=== PATIENT | female | born 1930 | race Caucasian/White ===

== ENCOUNTER 2016-12-25 11:02 | Emergency (ER) | payer OTHER ==
--- NOTE | 2016-12-25 11:13 | PDOC ---
History of Present Illness - General History Source: Patient, Old Records Exam Limitations: No Limitations - History of Present Illness Initial Comments: 12/25/16 11:13 The patient is an 86-year-old woman with a significant past medical history of hypertension, spinal stenosis and colon resection who presents to the emergency department via EMS status post fall. No head injury or loss of consciousness. Patient states that she was got up to get her walker. As she got up, her leg "gave up" and she fell. She denies experiencing any chest pain, lightheadedness , dizziness, visual changes, headaches, palpitations prior/post fall. She admits she did not even try to get up and activated her Life Alert. Patient currently denies any pain but wants images done to make sure her feet are okay. No numbness, tingling and weakness sensations to her extremities. No fever, chills. No cough, shortness of breath No abdominal pain, nausea, vomiting, diarrhea, Allergies: No Known Drug Allergies. Past Surgical History: Colon resection Social History: Never smoked. No ETOH and recreational drug use.. Primary Care Physician: <Iwona Duffy - Last Filed: 12/25/16 12:23> <Emma Price - Last Filed: 12/25/16 12:32> - General Chief Complaint: Injury Stated Complaint: FELL Time Seen by Provider: 12/25/16 11:13 Past History <Iwona Duffy - Last Filed: 12/25/16 12:23> - Past Medical History HTN: Yes Suicide Attempt (Hx): No - Surgical History Abdominal Surgery: Yes (colon resection) - Immunization History Immunization Up to Date: Yes - Psycho/Social/Smoking Cessation Hx Anxiety: No Suicidal Ideation: No Smoking Status: No Smoking History: Never smoked Have you smoked in the past 12 months: No Number of Cigarettes Smoked Daily: 0 Hx Alcohol Use: No Drug/Substance Use Hx: No Substance Use Type: None Hx Substance Use Treatment: No <Emma Price - Last Filed: 12/25/16 12:32> - Past Medical History Allergies/Adverse Reactions: Allergies Allergy/AdvReac Type Severity Reaction Status Date / Time No Known Allergies Allergy Verified 12/25/16 11:16 Home Medications: Ambulatory Orders Hydrochlorothiazide 25 mg PO DAILY 01/30/12 Quinapril HCl [Accupril -] 10 mg PO HS #0 tablet 02/03/12 Quinapril HCl [Accupril -] 40 mg PO DAILY #0 tablet 02/03/12 Sulfasalazine [Azulfidine] 1,000 mg PO BID #0 tablet 02/03/12 Nebivolol HCl [Bystolic] 5 mg PO DAILY 07/07/15 Furosemide 20 mg PO DAILY 12/25/16 Review of Systems - Review of Systems Able to Perform ROS?: Yes Comments:: 12/25/16 11:14 Constitutional - Pt denies Fever, Chills, weakness, HEENT: denies vision changes, sore throat Respiratory: Denies cough, sob, hemoptysis Cardiac: denies chest pain, palpitations, light headedness, leg swelling Abd/GI: denies abd pain, nausea, vomiting, blood per rectum, melena, diarrhea : denies dysuria, frequency, discharge Musculoskeletal - denies back pain, joint swelling skin - denies bruising, erythema, rash neurological: denies headache, numbness, focal weakness, tingling, ataxia, weakness hematologic: denies anemia, easy bruising, easy bleeding <Iwona Duffy - Last Filed: 12/25/16 12:23> *Physical Exam - Physical Exam Comments: 12/25/16 11:14 GENERAL: The patient is awake, alert, and fully oriented, Nontoxic - in no acute distress. HEAD: Normocephalic, atraumatic. EYES: extraocular movements intact, sclera anicteric, conjunctiva clear. ENT: Normal voice, moist mucous membranes. NECK: Normal range of motion, supple without lymphadenopathy, JVD, or masses. LUNGS: Breath sounds equal, clear to auscultation bilaterally. No wheezes, no crackles, no rales. HEART: Regular rate and rhythm, normal S1 and S2 without murmur, rub or gallop. ABDOMEN: Soft, nontender, normoactive bowel sounds. No guarding, no rebound. No masses. EXTREMITIES: Normal range of motion, no edema. No clubbing or cyanosis. No cords , erythema, or tenderness. NEUROLOGICAL: Fully Oriented, Alert, Normal Mood/Affect, Motor Strength 5/5. No facial assymetry, Normal speech SKIN: Warm, Dry, normal turgor, no rashes or lesions noted. <Iwona Duffy - Last Filed: 12/25/16 12:23> ED Treatment Course - RADIOLOGY Radiograph Interpretation: 12/25/16 12:23 EXAM: RAD/PELVIS IMPRESSION: A single view the pelvis has been submitted. Since a prior study of 02/06/2005, there is little change. Again noted are degenerative changes but no sign of a gross fracture or subluxation. The SI joints are patent. There is a nonspecific bowel pattern. If symptoms persist or there is continued decreased range of motion then further imaging with CT is suggested. EXAM: RAD/HIP-LEFT 0127 AND RAD/HIP-RIGHT IMPRESSION: Frontal view of the pelvis and neutral and frog-leg view of the right and left hip are provided. There is some mild spurring in the region of the greater trochanters. There are mild degenerative changes of the hip joints bilaterally. No acute fracture or dislocation is seen. Enthesophyte formation about the iliac crests is noted. There are degenerative changes of the visualized lower lumbar spine. An ovoid ossific focus measuring about 1.5 cm in size lateral to the left hip is seen , benign in appearance which may be due to old trauma. <Iwona Duffy - Last Filed: 12/25/16 12:23> Medical Decision Making - Medical Decision Making 12/25/16 12:15 I, Dr. Emma Price, attest that the scribes documentation that appears above has been prepared under my direction and personally reviewed by me. I confirmed that the note above accurately reflects all work, treatment, procedures, and medical decision-making performed by me. Pt with no c/o pain, xray no fracture, pt denies loc or any other complaints, says her foot gave out while walking to walker from bedroom, says she only came to hospital because ems said she should come in. 12/25/16 12:31 Pt was able to ambulate with her walker in the ED before dc home, Pt to f/u with pcp, return to ED as needed. PT agrees with this dc plan <Emma Price - Last Filed: 12/25/16 12:32> *DC/Admit/Observation/Transfer - Attestations Scribe Attestion: 12/25/16 11:14 Documentation prepared by Iwona Duffy, acting as medical billing and coding instructor for Emma Price DO. <Iwona Duffy - Last Filed: 12/25/16 12:23> - Discharge Dispostion Admit: No <Emma Price - Last Filed: 12/25/16 12:32> Diagnosis at time of Disposition: Fall - Discharge Dispostion Disposition: HOME Condition at time of disposition: Stable - Referrals Referrals: Elijah Silvestre MD [Primary Care Provider] - - Patient Instructions Printed Discharge Instructions: How to Prevent Falls Additional Instructions: Pt to return to ED as needed. PT to use walker, at all times, pt to f/u with pcp , in next 48-72hrs
[2016-12-25 11:19] VITALS: BP 166/73; PULSE 94; TEMP 98.2; BMI 26.6
== END 2016-12-25 12:47 | disposition home or self-care (01) ==
LOC: JER 11:02
DX: Z04.3 Encounter for examination and observation following other accident (principal); W18.39XA Other fall on same level, initial encounter; Y93.89 Activity, other specified; Y92.032 Bedroom in apartment as the place of occurrence of the external cause; I10 Essential (primary) hypertension; M48.00 Spinal stenosis, site unspecified
CPT/HCPCS: 72170-TC; 99282-25

== ENCOUNTER 2017-12-30 10:10 | Emergency (ER) | payer OTHER ==
[2017-12-30 10:22] VITALS: BMI 24.7
--- NOTE | 2017-12-30 10:24 | PDOC ---
Attending Attestation - HPI HPI: 12/30/17 10:56 The patient is a 87 year old female, with a significant PMH of hypertension, rheumatoid arthritis, spinal stenosis and colon resection who presents to the emergency department complaining of productive cough and post nasal drip for 10 days and shortness of breath since this morning. The patient states she was seen by her PMD Dr. Silvestre 3 days ago and diagnosed with acute bronchitis. The patient states she was started on Levaquin and had a chest x-ray and labs performed. The patient states that this morning when she woke up she felt short of breath secondary to her apartment feeling stuffy due to the humidity. The patient states she called Dr. Silvestre who advised her to com to the ED for evaluation of the shortness of breath. As per the patients cough, she states she feels much better than she did when the cough began and that her mucus was originally a yellow color but is now clearing up. The patient denies chest pain, headache and dizziness. Denies fever, chills, nausea, vomit, diarrhea and constipation. Denies dysuria, frequency, urgency and hematuria. Allergies: NKA Past surgical history: colon resection Social history: No reported PCP: Dr. Elijah Silvestre - Physicial Exam PE: 12/30/17 12:05 Vitals: Triage vital signs reviewed General Appearance: No acute distress, well nourished, well developed Head: Atraumatic Eyes: Pupils equal reactive round, extraocular movement intact Ears: TM's normal bilaterally Nose: Nares patent bilaterally; no nasal congestion Throat: Posterior oropharynx without erythema, mucous membranes moist Neck: Supple; No nuchal rigidity Chest Wall: Nontender Cardiac: Regular rate and rhythm, no murmurs, no rubs, no gallops Lungs: Clear to auscultation bilateral, good air movement bilaterally Abdomen: Soft, nondistended, normal bowel sounds, nontender to palpation Rectal: Exam deferred Extremities: Full range of motion to all extremities, no cyanosis, clubbing, or edema Skin: Warm and dry, no rashes or lesions, no rash, no petechiae Neuro: AOX3; Cranial Nerves 2-12 grossly intact, Strength intact to all extremities, Sensation intact to all extremities. Psych: Normal mood, normal affect - Medical Decision Making 12/30/17 10:56 The patient is a 87 year old female, with a significant PMH of hypertension, rheumatoid arthritis, spinal stenosis and colon resection who presents to the emergency department complaining of productive cough and post nasal drip for 10 days and shortness of breath since this morning. Plan: Labs, blood culture. Documentation prepared by Luis Haddad, acting as medical hospital sales for Vamshi Mcleod MD. <Luis Haddad - Last Filed: 12/30/17 12:05> - Resident Resident Name: John Capps - ED Attending Attestation I have performed the following: I have examined & evaluated the patient, The case was reviewed & discussed with the resident, I agree w/resident's findings & plan, Exceptions are as noted - Medical Decision Making 12/30/17 12:45 Differential diagnosis includes symptomatology consistent with her URI/ bronchitis less likely cardiac, less likely worsening pneumonia possible from feeling short of breath and hot this morning secondary to the humidity We'll check labs EKG troponin observe and reassess no focal lung findings on patient's respiratory exam Reevaluation patient well-appearing no apparent distress low-grade fever likely continuation of bronchitis findings discussed with patient's primary care provider Dr. Saldivar will follow up with Dr. Tejeda next week we'll continue outpatient Levaquin as prescribed <Vamshi Mcleod - Last Filed: 12/30/17 16:13>
--- NOTE | 2017-12-30 10:31 | PDOC ---
History of Present Illness - General Chief Complaint: Respiratory Stated Complaint: SOB Time Seen by Provider: 12/30/17 10:21 History Source: Patient Exam Limitations: No Limitations - History of Present Illness Initial Comments: 12/30/17 11:56 87F with pmh of PMH of HTN, RA, spinal stenosis and colon resection who presents to the emergency department complaining of productive cough and post nasal drip for 10 days and shortness of breath since this morning. The patient states she was seen by her PMD Dr. Silvestre 3 days ago and diagnosed with acute bronchitis, started on Levaquin and had a chest x-ray (negative) and labs ( elevated WBC)performed. The patient states that this morning when she woke up she felt short of breath secondary to her apartment feeling stuffy due to the humidity. The patient states she called Dr. Silvestre who advised her to come to the ED for evaluation of the shortness of breath. Currently has not difficulty breathing. States that her bronchitis seems to be getting better. Sputum is clearing up. . Patient has never smoked. The patient denies chest pain, headache and dizziness. Denies fever, chills, nausea, vomit, diarrhea and constipation. Denies dysuria, frequency, urgency and hematuria. Allergies: NKA Past surgical history: colon resection Social history: No reported PCP: Dr. Elijah Silvestre Past History - Past Medical History Allergies/Adverse Reactions: Allergies Allergy/AdvReac Type Severity Reaction Status Date / Time No Known Allergies Allergy Verified 12/30/17 10:21 Home Medications: Ambulatory Orders Hydrochlorothiazide 25 mg PO DAILY 01/30/12 Quinapril HCl [Accupril -] 10 mg PO HS #0 tablet 02/03/12 Quinapril HCl [Accupril -] 40 mg PO DAILY #0 tablet 02/03/12 Nebivolol HCl [Bystolic] 10 mg PO DAILY 07/07/15 Furosemide 20 mg PO DAILY 12/25/16 Amlodipine Besylate [Norvasc -] 10 mg PO DAILY 12/30/17 Sulfasalazine [Azulfidine] 500 mg PO QID 12/30/17 levoFLOXacin [Levaquin] 750 mg PO DAILY 12/30/17 COPD: No HTN: Yes - Surgical History Abdominal Surgery: Yes (colon resection) - Immunization History Immunization Up to Date: Yes - Suicide/Smoking/Psychosocial Hx Smoking Status: No Smoking History: Former smoker Have you smoked in the past 12 months: No Number of Cigarettes Smoked Daily: 0 Information on smoking cessation initiated: No Hx Alcohol Use: No Drug/Substance Use Hx: No Substance Use Type: None Hx Substance Use Treatment: No Review of Systems - Review of Systems Able to Perform ROS?: Yes Is the patient limited [place]raltarian proficient: No Constitutional: No: Symptoms Reported HEENTM: No: Symptoms Reported Respiratory: Yes: See HPI Cardiac (ROS): No: Symptoms Reported : No: Symptoms Reported Musculoskeletal: No: Symptoms Reported All Other Systems: Reviewed and Negative *Physical Exam - Vital Signs Last Vital Signs Temp Pulse Resp BP Pulse Ox 99.1 F 95 H 18 153/76 96 12/30/17 10:17 12/30/17 10:17 12/30/17 10:17 12/30/17 10:17 12/30/17 10:17 - Physical Exam General Appearance: Yes: Nourished, Appropriately Dressed. No: Apparent Distress HEENT: positive: EOMI, JOSE CARLOS, Normal ENT Inspection Respiratory/Chest: positive: Lungs Clear, Normal Breath Sounds. negative: Chest Tender, Respiratory Distress Cardiovascular: positive: Regular Rhythm, Regular Rate, S1, S2 Gastrointestinal/Abdominal: positive: Normal Bowel Sounds, Flat, Soft. negative : Tender Musculoskeletal: positive: Normal Inspection. negative: CVA Tenderness ED Treatment Course - LABORATORY CBC & Chemistry Diagram: 12/30/17 10:45 12/30/17 10:45 Medical Decision Making - Medical Decision Making 12/30/17 12:04 87F with sob this morning and productive cough x10 days. Will evalute acute URI with repeat lab, r/o diffewrent source of fever/wbc with UA and EKG/trop for cardiac event. All results negative, wbc improving. EKG: sinus rhythm with anterior infarct age undetermined. Spoke to Dr. Silvestre who agreed with plan of follow up within 2-3- days. *DC/Admit/Observation/Transfer Diagnosis at time of Disposition: Acute bronchitis - Discharge Dispostion Disposition: HOME Condition at time of disposition: Fair Admit: No - Referrals Referrals: Elda Silvestre [Primary Care Provider] - - Patient Instructions Printed Discharge Instructions: DI for Acute Bronchitis Additional Instructions: Take Tylenol for fever. Follow up with Dr. Androne within 2-3 days. Come back to the emergency department for any new, worsening or concerning symptom. - Post Discharge Activity
[2017-12-30 10:48] VITALS: TEMP 100.4
[2017-12-30 11:10] LABS: BASO % 0.9 % (0-2.0); HEMOGLOBIN 8.8 GM/dL (10.7-15.3); LYMPH % 17.8 % (8-40); MCH 32.9 pg (25.7-33.7); MCHC 33.9 g/dl (32.0-36.0); MEAN CELL VOLUME 97.1 fl (80-96); MEAN PLT VOLUME 7.6 fl (7.5-11.1); MONO % 12.4 % (3.8-10.2); NEUT % 66.9 % (42.8-82.8); PLATELET COUNT 327 K/MM3 (134-434); RBC 2.67 M/mm3 (3.60-5.2); RDW 14.6 % (11.6-15.6); WHITE BLOOD COUNT 8.5 K/mm3 (4.0-10.0)
[2017-12-30 11:12] VITALS: BP 116/78
[2017-12-30 11:13] LABS: URINE APPEARANCE CLEAR; URINE BILIRUBIN NEGATIVE (<2.0 mg/dL); URINE BLOOD NEGATIVE (NEGATIVE); URINE COLOR YELLOW; URINE GLUCOSE (UA) NEGATIVE (NEGATIVE); URINE KETONE NEGATIVE (NEGATIVE); URINE LEUK ESTERASE NEGATIVE (NEGATIVE); URINE NITRITE NEGATIVE (NEGATIVE); URINE PROTEIN NEGATIVE (NEGATIVE); URINE UROBILINOGEN NEGATIVE mg/dL (0.2-1.0)
[2017-12-30 11:31] LABS: ALBUMIN 3.2 g/dl (3.4-5.0); ANION GAP 5 (8-16); BILIRUBIN,TOTAL 0.3 mg/dL (0.2-1.0); BLOOD UREA NITROGEN 23 mg/dL (7-18); CALCIUM 8.1 mg/dL (8.5-10.1); CHLORIDE 103 mmol/L (98-107); CO2 28 mmol/L (21-32); CREATININE 0.8 mg/dL (0.55-1.02); GLUCOSE,RANDOM 95 mg/dL (74-106); SGPT/ALT 14 U/L (12-78); SODIUM 136 mmol/L (136-145); TOT PROT 5.9 g/dl (6.4-8.2)
[2017-12-30 11:32] LABS: ALK PHOS 82 U/L (45-117)
[2017-12-30 11:43] LABS: POTASSIUM 4.1 mmol/L (3.5-5.1); SGOT/AST 17 U/L (15-37)
[2017-12-30] MEDS ORDERED: ACETAMINOPHEN 325 MG TABLET (FP) PO ONE (12:46)
[2017-12-30] MEDS ORDERED: ACETAMINOPHEN 325 MG TABLET (FP) ONE (13:03)
[2017-12-30 13:13] VITALS: PULSE 91
--- NOTE | 2018-01-04 12:19 | EKG ---
Test Reason : Blood Pressure : / mmHG Vent. Rate : 094 BPM Atrial Rate : 094 BPM P-R Int : 142 ms QRS Dur : 078 ms QT Int : 352 ms P-R-T Axes : 030 039 050 degrees QTc Int : 440 ms NORMAL SINUS RHYTHM ANTERIOR INFARCT (CITED ON OR BEFORE 30-JAN-2012) ABNORMAL ECG WHEN COMPARED WITH ECG OF 07-JUL-2015 12:33, NO SIGNIFICANT CHANGE WAS FOUND Confirmed by MANPREET DILLARD MD ([id number]) on 01/04/2018 12:19:03 PM Referred By: Confirmed By:MANPREET DILLARD MD
== END 2017-12-30 13:14 | disposition home or self-care (01) ==
LOC: JER 10:10
DX: J20.9 Acute bronchitis, unspecified (principal); Z87.891 Personal history of nicotine dependence; I10 Essential (primary) hypertension; M06.9 Rheumatoid arthritis, unspecified; R09.82 Postnasal drip
CPT/HCPCS: 36415; 80053; 81003; 84484; 85025; 87040; 93005; 93010; 99284-25

== ENCOUNTER 2019-06-17 16:56 | Observation (INO) | payer OTHER ==
--- NOTE | 2019-06-17 17:10 | PDOC ---
History of Present Illness - General Stated Complaint: SOB & CHEST PAIN Time Seen by Provider: 06/17/19 17:07 - History of Present Illness Initial Comments: 06/17/19 17:10 88 yo F PMH HTN, RA, spinal stenosis, urinary incontinence, and colon resection , presenting with L sided chest pain and SOB. Began this morning, coming and going, 8/10, sharp, non-radiating, associated with nausea w/o vomiting. Denies diaphoresis, abdominal pain, constipation/diarrhea, fevers/chills, [place]. Endorses burning with urination for past week. Patient states "I do not want to live anymore", and reports feeling this way for some time. No specific plan, no HI. Two children here from [place], have not seen patient for one month, states that she had never endorsed this before. At the beginning of the month, patient was seeing her urologist for urinary incontinence, seen to have lesions on L gluteus. Followed up with PCP, diagnosed with shingles, given medication. Course completed last week, however, patient did not follow up with her PCP. Past History - Past Medical History Allergies/Adverse Reactions: Allergies Allergy/AdvReac Type Severity Reaction Status Date / Time No Known Allergies Allergy Verified 12/30/17 10:21 Home Medications: Ambulatory Orders Hydrochlorothiazide 25 mg PO DAILY 01/30/12 Quinapril HCl [Accupril -] 10 mg PO HS #0 tablet 02/03/12 Quinapril HCl [Accupril -] 40 mg PO DAILY #0 tablet 02/03/12 Nebivolol HCl [Bystolic] 10 mg PO DAILY 07/07/15 Furosemide 20 mg PO DAILY 12/25/16 Amlodipine Besylate [Norvasc -] 10 mg PO DAILY 12/30/17 Sulfasalazine [Azulfidine] 500 mg PO QID 12/30/17 levoFLOXacin [Levaquin] 750 mg PO DAILY 12/30/17 COPD: No HTN: Yes - Surgical History Abdominal Surgery: Yes (colon resection) - Immunization History Immunization Up to Date: Yes - Psycho Social/Smoking Cessation Hx Smoking Status: No Smoking History: Former smoker Have you smoked in the past 12 months: No Number of Cigarettes Smoked Daily: 0 Hx Alcohol Use: No Drug/Substance Use Hx: No Substance Use Type: None Hx Substance Use Treatment: No Review of Systems - Review of Systems Able to Perform ROS?: Yes Constitutional: No: Chills, Diaphoresis, Fever, Weakness HEENTM: No: Recent change in vision, Hearing Loss, Difficulty Swallowing Respiratory: Yes: Shortness of Breath. No: Cough Cardiac (ROS): Yes: Chest Pain. No: Edema, Irregular Heart Rate ABD/GI: Yes: Nausea. No: Constipated, Diarrhea, Vomiting : Yes: Burning. No: Dysuria, Discharge, Frequency, Flank Pain Musculoskeletal: Yes: Back Pain. No: Muscle Weakness Integumentary: Yes: Lesions (L gluteus 2/2 shingles) Psychiatric: Yes: Depression, Other (SI without plan, no HI) *Physical Exam - Physical Exam Comments: 06/17/19 18:11 Gen: well-developed, well-nourished, NAD, appears pale Neuro: AAOX4, CN II-XII intact, FTN intact, EOMI, PERRLA, 5/5 strength, SILT HEENT: atraumatic, normocephalic, dry mucous membranes, missing multiple upper teeth Neck: trachea midline, supple CV: regular rate, regular rhythm, no murmurs, rubs, or gallops Pulm: coarse, no wheezing or crackles Abd: soft, non-distended, non-tender MSK: full ROM, intact pulses Extr: no edema, no deformities Skin: warm, dry, crusted over lesion on L gluteus ED Treatment Course - LABORATORY CBC & Chemistry Diagram: 06/17/19 19:10 06/17/19 20:00 Medical Decision Making - Medical Decision Making 06/17/19 18:10 Patient with SI without plan, will be on 1:1. Chest pain with SOB concerning for ACS v PNA, suprapubic tenderness and burning with urination concerning for UTI. - CBC, CMP, trop - EKG, CXRport - UA/UC - reassess 06/17/19 19:07 CXR similar to prior, no acute pathology. EKG normal sinus at 79 bpm, normal intervals, no ST segment elevations or T wave inversions 06/17/19 19:42 Hgb 9.2, no elevated WBC 06/17/19 21:03 Na 133, Cl 97, otherwise unremarkable. Discharge - Discharge Information Problems reviewed: Yes Clinical Impression/Diagnosis: Chest pain, SOB (shortness of breath), Suicidal ideation - Follow up/Referral Referrals: Elda Silvestre [Staff Physician] - - Patient Discharge Instructions - Post Discharge Activity
[2019-06-17 18:06] VITALS: BMI 22.1
--- NOTE | 2019-06-17 18:38 | PDOC ---
Documentation entered by Kishore Pittman SCRIBE, acting as scribe for Isa Cristobal MD. Isa Cristobal MD: This documentation has been prepared by the Toya green Nirvannie, SCRIBE, under my direction and personally reviewed by me in its entirety. I confirm that the documentation accurately reflects all work, treatment, procedures, and medical decision making performed by me. Attending Attestation - Resident Resident Name: [email or web address] - ED Attending Attestation I have performed the following: I have examined & evaluated the patient, The case was reviewed & discussed with the resident, I agree w/resident's findings & plan, Exceptions are as noted - HPI HPI: 06/17/19 18:17 The patient is an 88 year old female, with a significant past medical history of hypertension, rheumatoid arthritis, spinal stenosis and colon resection, who presents to the emergency department with, 1 day of left sided chest pain described as a waxing and waning with associated SOB and nausea. Pt does not remember what she was doing when her sxs started this morning or any triggers, states "I don't know, I'm confused." Patient also endorses an associated one week of dysuria. Upon questioning, patient states she does not want to live anymore but denies having any plan for suicide. Reports having these feelings for "a long time" but can not elaborate further. Denies any changes to her recent social situation, states she lives alone. She denies any lightheadedness, dizziness, diaphoresis, focal weakness/numbness or palpitations. She denies any homicidal ideation, hallucinations. She denies any fevers, chills, diarrhea, or constipation. Allergies: NKDA Past surgical history: Colon resection. Social history: Nonsmoker. Denies EtOH use and recreational drug use. Primary Care Physician: Dr. Elijah Silvestre - Physicial Exam PE: 06/17/19 18:43 GENERAL: Awake, alert, and fully oriented, in no acute distress HEAD: No signs of trauma EYES: PERRLA, EOMI, sclera anicteric, conjunctiva clear ENT: Nares patent, oropharynx clear without exudates. Moist mucosa NECK: Normal ROM, supple, no lymphadenopathy, JVD, or masses LUNGS: Breath sounds equal, clear to auscultation bilaterally. No wheezes, and no crackles HEART: Regular rate and rhythm, normal S1 and S2, no murmurs, rubs or gallops ABDOMEN: Soft, nontender, normoactive bowel sounds. No guarding, no rebound. No masses EXTREMITIES: R foot in metal splint holding foot in dorsiflexion due to known foot drop. Otherwise, normal range of motion, no edema. No clubbing or cyanosis. No cords, erythema, or tenderness BACK: No midline spinal tenderness in cervical/thoracic/lumbar region NEUROLOGICAL: Normal speech, cranial nerves intact, equal strength and sensation b/l SKIN: Warm, Dry, normal turgor, no rashes or lesions noted. - Medical Decision Making 06/17/19 18:35 88yo F with MMP including HTN, spinal stenosis presents to the ED with LSCP, SOB intermittently, dysuria and suicidal ideation. Pt on 1:1 watch Plan: cardiac care nurse labs UA CXR CTH admit tele obs 06/17/19 19:08 Labs, CTH, XR pending Case discussed with Dr. Condon who will evaluate pt Case signed out to Dr. Carter for f/u on pending w/u, admission Heart Score/ECG Review - History History: Moderately suspicious - Electrocardiogram EKG: Normal - Age Age: >/= 65 - Risk Factors Based on the list above the patient has:: 1-2 risk factors - Troponin Troponin: </= normal limit - Score Heart Score - Total: 4 #1 06/17/19 18:37 EKG read and int by me: NSR, rate 79, normal axis and intervals. No YARA or TWI
[2019-06-17 19:14] LABS: BASO % 1.1 % (0-2.0); EOS % 1.6 % (0-4.5); HEMATOCRIT 26.7 % (32.4-45.2); HEMOGLOBIN 9.2 GM/dL (10.7-15.3); LYMPH % 21.7 % (8-40); MCH 34.7 pg (25.7-33.7); MCHC 34.4 g/dl (32.0-36.0); MEAN PLT VOLUME 7.9 fl (7.5-11.1); MONO % 12.2 % (3.8-10.2); NEUT % 63.4 % (42.8-82.8); PLATELET COUNT 191 K/MM3 (134-434); RBC 2.64 M/mm3 (3.60-5.2); RDW 16.8 % (11.6-15.6); WHITE BLOOD COUNT 7.6 K/mm3 (4.0-10.0)
[2019-06-17 20:56] LABS: ALBUMIN 3.5 g/dl (3.4-5.0); BLOOD UREA NITROGEN 20.1 mg/dL (7-18); CALCIUM 8.7 mg/dL (8.5-10.1); CREATININE 0.7 mg/dL (0.55-1.3); POTASSIUM 3.8 mmol/L (3.5-5.1); TOT PROT 5.6 g/dl (6.4-8.2)
[2019-06-17] MEDS ORDERED: SODIUM CHLORIDE 500 ML IV STA (21:04)
[2019-06-18] MEDS ORDERED: QUINAPRIL HCL 10 MG TABLET (FP) PO ONE (02:45)
[2019-06-18 07:17] LABS: ALBUMIN 3.2 g/dl (3.4-5.0); ALK PHOS 55 U/L (45-117); ANION GAP 9 MMOL/L (8-16); BILIRUBIN,TOTAL 0.6 mg/dL (0.2-1); CALCIUM 8.3 mg/dL (8.5-10.1); CHLORIDE 99 mmol/L (98-107); CO2 26 mmol/L (21-32); CREATININE 0.6 mg/dL (0.55-1.3); GLUCOSE,RANDOM 79 mg/dL (74-106); POTASSIUM 3.5 mmol/L (3.5-5.1); SGOT/AST 18 U/L (15-37); SGPT/ALT 15 U/L (13-61); SODIUM 135 mmol/L (136-145); TOT PROT 5.4 g/dl (6.4-8.2)
[2019-06-18 08:54] LABS: HEMATOCRIT 25.4 % (32.4-45.2); HEMOGLOBIN 9.1 GM/dL (10.7-15.3); MCH 35.6 pg (25.7-33.7); MCHC 35.6 g/dl (32.0-36.0); MEAN PLT VOLUME 7.4 fl (7.5-11.1); PLATELET COUNT 320 K/MM3 (134-434); RBC 2.54 M/mm3 (3.60-5.2); RDW 17.5 % (11.6-15.6); WHITE BLOOD COUNT 6.2 K/mm3 (4.0-10.0)
[2019-06-18 08:59] LABS: HYALINE CASTS 2 /lpf (0-8); PH,URINE 6.5 (5.0-8.0); URINE APPEARANCE CLEAR; URINE BACTERIA 0.2 /hpf (NEGATIVE); URINE BILIRUBIN NEGATIVE (NEGATIVE); URINE COLOR DK YELLOW; URINE GLUCOSE (UA) NEGATIVE (NEGATIVE); URINE KETONE NEGATIVE (NEGATIVE); URINE LEUK ESTERASE NEGATIVE (NEGATIVE); URINE NITRITE NEGATIVE (NEGATIVE); URINE PROTEIN 1+ (NEGATIVE); URINE RBC 1 /hpf (0-4); URINE UROBILINOGEN 0.2 mg/dL (0.2-1.0); URINE WBC 1 /hpf (0-5)
[2019-06-18] MEDS ORDERED: PT OWN MED DRAWER 7, Y5N ONE ×3 (09:11→21:32)
[2019-06-18] MEDS: amLODIPine BESYLATE 10 MG TABLET (FP) PO SCH (09:14)
[2019-06-18] MEDS: NEBIVOLOL 10 MG TABLET (FP) PO SCH (09:14)
[2019-06-18] MEDS: HYDROCHLOROTHIAZIDE 25 MG TABLET (FP) PO SCH (09:14)
[2019-06-18] MEDS: FUROSEMIDE 20 MG TABLET (FP) PO SCH (09:14)
--- NOTE | 2019-06-18 10:18 | HP ---
Admitting History and Physical - Primary Care Physician PCP: Elda Silvestre S - Admission Chief Complaint: CP weakness History of Present Illness: The patient is an 88 year old female, with a significant past medical history of hypertension, rheumatoid arthritis, spinal stenosis and colon resection, who presents to the emergency department with, 1 day of left sided chest pain described as a waxing and waning with associated SOB and nausea. Pt does not remember what she was doing when her sxs started this morning or any triggers. Patient also endorses an associated one week of dysuria. Upon questioning, patient states she does not want to live anymore but denies having any plan for suicide. Reports having these feelings for "a long time" but can not elaborate further. Denies any changes to her recent social situation, states she lives alone. She said her daughter has some drug problems and she is very upset about her but she does not really want to end her life. She denies any lightheadedness, dizziness, diaphoresis, focal weakness/numbness or palpitations. She denies any fevers, chills, diarrhea, or constipation. History Source: Patient Limitations to Obtaining History: No Limitations - Past Medical History Cardiovascular: Yes: CAD, HTN ...: No Musculoskeletal: Yes: Osteoarthritis - Advance Directives Advance Directives: Yes: DNR - Smoking History Smoking history: Never smoked Have you smoked in the past 12 months: No Aproximately how many cigarettes per day: 0 - Alcohol/Substance Use Hx Alcohol Use: No History of Substance Use: reports: None - Social History Usual Living Arrangement: Yes: Alone Do you think of yourself as: Straight/Heterosexual ADL: Independent History of Recent Travel: No Home Medications - Allergies Allergies/Adverse Reactions: Allergies Allergy/AdvReac Type Severity Reaction Status Date / Time No Known Allergies Allergy Verified 12/30/17 10:21 - Home Medications Home Medications: Ambulatory Orders Hydrochlorothiazide 25 mg PO DAILY 01/30/12 Quinapril HCl [Accupril -] 10 mg PO HS #0 tablet 02/03/12 Quinapril HCl [Accupril -] 40 mg PO DAILY #0 tablet 02/03/12 Nebivolol HCl [Bystolic] 10 mg PO DAILY 07/07/15 Furosemide 20 mg PO DAILY 12/25/16 Amlodipine Besylate [Norvasc -] 10 mg PO DAILY 12/30/17 Sulfasalazine [Azulfidine] 500 mg PO QID 12/30/17 levoFLOXacin [Levaquin] 750 mg PO DAILY 12/30/17 Review of Systems - Review of Systems Constitutional: reports: Loss of Appetite, Weakness (general). denies: Chills, Fever, Lethargy HENT: denies: Difficult Swallowing, Ear Pain, Epistaxis Neck: denies: Stiffness, Tenderness Cardiovascular: reports: Chest Pain. denies: Edema, Palpitations, Shortness of Breath Respiratory: reports: Exercise Intolerance (fatigue). denies: Cough, Hemoptysis , SOB, SOB on Exertion, Wheezing Genitourinary: denies: Dysuria, Flank Pain Musculoskeletal: denies: Back Pain, Joint Swelling Neurological: denies: Change in LOC, Change in Speech, Confusion, Dizziness Hematology/Lymphatic: denies: Easily Bruised, Excessive Bleeding Psychiatric: denies: Anxiety, Depression, Suicidal Physical Examination Vital Signs: Vital Signs Temperature 98.0 F 06/18/19 06:00 Pulse Rate 86 06/18/19 06:00 Respiratory Rate 20 06/18/19 06:00 Blood Pressure 150/74 06/18/19 06:00 O2 Sat by Pulse Oximetry (%) 97 06/18/19 02:00 Constitutional: Yes: No Distress, Calm Eyes: Yes: Conjunctiva Clear HENT: Yes: Atraumatic Neck: Yes: Supple Cardiovascular: Yes: Regular Rate and Rhythm Respiratory: Yes: CTA Bilaterally Gastrointestinal: Yes: Soft. No: Tenderness Renal/: No: Hematuria Musculoskeletal: No: Joint Stiffness, Joint Swelling Extremities: No: Cold, Cool, Cyanosis Edema: No Integumentary: No: Rash, Venous Stasis Changes Neurological: Yes: WNL, Alert, Oriented ...Motor Strength: WNL Psychiatric: Yes: WNL, Alert, Oriented. No: Agitated, Suicidal Ideation Labs: CBC, BMP 06/18/19 07:48 06/18/19 05:32 Imaging - Results Chest X-ray: Report Reviewed Other: Report Reviewed Assessment/Plan The patient is an 88 year old female, with a significant past medical history of hypertension, rheumatoid arthritis, spinal stenosis and colon resection, who presents to the emergency department with, 1 day of left sided chest pain described as a waxing and waning with associated SOB and nausea. 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
[2019-06-18] MEDS: QUINAPRIL HCL 40 MG TABLET (FP) PO SCH (11:07)
--- NOTE | 2019-06-18 11:11 | CON.CARD ---
Consult Consult Specialty:: Cardiology Referred by:: Elda Silvestre Reason for Consultation:: Chest pain, dyspnea - History of Present Illness Chief Complaint: Chest pain, dyspnea History of Present Illness: 88 yo F PMH HTN, RA, spinal stenosis, urinary incontinence, and colon resection , presented with non-exertional retrosternal, sharp chest pain and SOB since resolved. She denies palpitations, near or true syncope, orthopnea, PND or LE edema. Endorses burning with urination for past week. Patient states "I do not want to live anymore", and reports feeling this way for some time. No specific plan, no HI. Allergies: NKDA Past surgical history: Colon resection. Social history: Nonsmoker. Denies EtOH use and recreational drug use. Primary Care Physician: Dr. Elijah Silvestre - History Source History Provided By: Patient Limitations to Obtaining History: No Limitations - Past Medical History ...: No - Alcohol/Substance Use Hx Alcohol Use: No - Smoking History Smoking history: Never smoked Have you smoked in the past 12 months: No Aproximately how many cigarettes per day: 0 Home Medications - Allergies Allergies/Adverse Reactions: Allergies Allergy/AdvReac Type Severity Reaction Status Date / Time No Known Allergies Allergy Verified 12/30/17 10:21 - Home Medications Home Medications: Ambulatory Orders Hydrochlorothiazide 25 mg PO DAILY 01/30/12 Quinapril HCl [Accupril -] 10 mg PO HS #0 tablet 02/03/12 Quinapril HCl [Accupril -] 40 mg PO DAILY #0 tablet 02/03/12 Nebivolol HCl [Bystolic] 10 mg PO DAILY 07/07/15 Furosemide 20 mg PO DAILY 12/25/16 Amlodipine Besylate [Norvasc -] 10 mg PO DAILY 12/30/17 Sulfasalazine [Azulfidine] 500 mg PO QID 12/30/17 levoFLOXacin [Levaquin] 750 mg PO DAILY 12/30/17 Review of Systems - Review of Systems Cardiovascular: reports: Chest Pain, Shortness of Breath Vital Signs: Vital Signs Temperature 98.0 F 06/18/19 06:00 Pulse Rate 86 06/18/19 06:00 Respiratory Rate 18 06/18/19 09:00 Blood Pressure 150/74 06/18/19 06:00 O2 Sat by Pulse Oximetry (%) 97 06/18/19 09:00 Constitutional: Yes: No Distress, Calm, Thin Neck: Yes: Supple Respiratory: Yes: Regular, CTA Bilaterally Gastrointestinal: Yes: Normal Bowel Sounds, Soft Cardiovascular: Yes: Regular Rate and Rhythm JVD: No Carotid Bruit: No Heart Sounds: Yes: S1, S2 Murmur: Yes: Systolic Murmur, Grade 1 Edema: No - Other Data Labs, Other Data: CBC, BMP 06/18/19 07:48 06/18/19 05:32 Troponin, BNP 06/17/19 06/18/19 20:00 05:32 Troponin I < 0.02 < 0.02 Troponin, BNP 06/17/19 06/18/19 20:00 05:32 Troponin I < 0.02 < 0.02 NSR @ 79 PRWP Ejection Fraction %: LVEF > or = 40 % Imaging - Results Chest X-ray: Report Reviewed (NAD) Problem List - Problems (1) Hypertensive heart disease Code(s): I11.9 - HYPERTENSIVE HEART DISEASE WITHOUT HEART FAILURE Qualifiers: Heart failure presence: without heart failure Qualified Code(s): I11.9 - Hypertensive heart disease without heart failure (2) Chest pain Code(s): R07.9 - CHEST PAIN, UNSPECIFIED Qualifiers: Chest pain type: unspecified Qualified Code(s): R07.9 - Chest pain, unspecified (3) SOB (shortness of breath) Code(s): R06.02 - SHORTNESS OF BREATH (4) Rheumatoid arthritis Code(s): M06.9 - RHEUMATOID ARTHRITIS, UNSPECIFIED Qualifiers: Rheumatoid arthritis location: unspecified site Assessment/Plan 02/04/2017 Echo: Normal LV and RV size and fxn, mild TR 1. Atypical chest pain 2. Hypertensive heart disease 3. Rheumatoid arthritis 4. UTI P:1. Ruled out for MN, f/u echocardiogram to assess ventricular and valve fxn 2. Continue Accuretic 40/25 qd, Bystolic 10 qd, Norvasc 10 qd, Lasix 20 qd 3. Thank you for consultative opportunity
--- NOTE | 2019-06-18 13:20 | CON.PSY ---
Psychiatry Consult Chief Complaint: i was upset yesyerday with my daughter who is a drug abuser. I felt desperate, i dont want to kill myself , never did. I have never seen apsychiatrist. - Previous Psychiatric Treatment Outpatient: None Inpatient: None - Previous Substance Abuse Treatment Outpatient: None Inpatient: None - Current Medications Current Medications: Active Medications Amlodipine Besylate (Norvasc -) 10 mg PO DAILY [facility] Last Admin: 06/18/19 09:14 Dose: 10 mg Furosemide (Lasix -) 20 mg PO DAILY [facility] Last Admin: 06/18/19 09:14 Dose: 20 mg Hydrochlorothiazide (Hctz -) 25 mg PO DAILY [facility] Last Admin: 06/18/19 09:14 Dose: 25 mg Nebivolol (Bystolic -) 10 mg PO DAILY [facility] Last Admin: 06/18/19 09:14 Dose: 10 mg Quinapril HCl (Accupril -) 10 mg PO [facility] Quinapril HCl (Accupril -) 40 mg PO DAILY [facility] Last Admin: 06/18/19 11:07 Dose: 40 mg Sulfasalazine (Azulfidine En-Tabs -) 500 mg PO QID [facility] Last Admin: 06/18/19 13:05 Dose: 500 mg - Allergies Allergies: Allergies Allergy/AdvReac Type Severity Reaction Status Date / Time No Known Allergies Allergy Verified 12/30/17 10:21 - Current Living Status Usual Living Arrangement: Alone - Current Mental Status Evaluation Appearance: Well Groomed Attitude: Cooperative - Affect Affect: Full Range - Mood Mood: Euthymic - Speech/Language Expressive: Coherent - Psychomotor Activity Psychomotor Activity: Normal - Thought Process Thought Process: Intact - Thought Content Hallucinations: Absent Delusions: Absent - Self Perception Self Perception: No Impairment - Cognition Attention: Alert Orientation: Time Memory, Immediate Recall: Intact Memory, Short Term: 3/3 Memory, Remote with Promptin/3 - Concentration Serial Sevens Intact: Yes Simple Calculations Intact: Yes - Abstraction Proverb Interpretation: Intact Judgement: Intact - Insight Insight: Intact - Impulse Control Impulse Control: Good Control - Suicidal Ideation Suicidal Ideation: No - Homicidal Ideation Homicidal Ideation: No Assessment/Plan 1) d/c 1:1. 2) no need for Psych meds. 3) refer to Adult Protective Services.
--- NOTE | 2019-06-18 15:21 | ECHO ---
Name: ANAMIKA MORELAND Exam:Adult Echocardiogram Study Date: 06/18/2019 02:24 PM Age: 88 yrs Reason For Study: htn heart disease Height: 63 in Weight: 125 lb BSA: 1.6 m2 MMode/2D Measurements & Calculations IVSd: 0.90 cm Ao root diam: 2.8 cm LVIDd: 3.8 cm LA dimension: 2.9 cm LVIDs: 2.7 cm LVPWd: 0.99 cm LVPWs: 1.1 cm EDV(Teich): 62.5 ml ESV(Teich): 26.1 ml LVOT diam: 1.9 cm RV S Dagoberto: 11.1 cm/sec Doppler Measurements & Calculations MV E max dagoberto: 80.5 cm/sec Ao V2 max: 185.8 cm/sec MV A max dagoberto: 111.6 cm/sec Ao max P.8 mmHg MV E/A: 0.72 MV dec time: 0.24 sec GO(V,D): 1.5 cm2 LV V1 max P.1 mmHg TR max dagoberto: 206.3 cm/sec LV V1 max: 100.7 cm/sec TR max P.1 mmHg PA V2 max: 119.8 cm/sec Med Peak E' Dagoberto: 4.3 cm/sec PA max P.8 mmHg Med E/e': 18.8 Lat Peak E' Dagoberto: 4.6 cm/sec Lat E/e': 17.6 Procedure A complete two-dimensional transthoracic echocardiogram was performed (2D, M-mode, Doppler and color flow Doppler). Left Ventricle The left ventricle is normal in size. Left ventricular systolic function is normal. Ejection Fraction = 55- 60%. LV diastology reveals elevated filling pressure with impaired relaxation. No regional wall motio n abnormalities noted. Right Ventricle The right ventricle is normal size. The right ventricular systolic function is normal. RV systolic TD I is 11 cm/s. Atria The left atrial size is normal. Right atrial size is normal. Mitral Valve There is mild mitral annular calcification. There is mild mitral regurgitation. Tricuspid Valve The tricuspid valve is normal in structure and function. There is mild tricuspid regurgitation. Right ventricular systolic pressure is normal. Aortic Valve There is mild aortic sclerosis.;. No aortic regurgitation is present. Pulmonic Valve The pulmonic valve is not well visualized. Trace pulmonic valvular regurgitation. Great Vessels The aortic root is normal size. Pericardium/Pleura There is no pericardial effusion. Interpretation Summary The left ventricle is normal in size. Left ventricular systolic function is normal. No regional wall motion abnormalities noted. Ejection Fraction = 55-60%. LV diastology reveals elevated filling pressure with impaired relaxation The right ventricular systolic function is normal. The left atrial size is normal. Right atrial size is normal. There is mild mitral annular calcification. There is mild mitral regurgitation. There is mild tricuspid regurgitation. Right ventricular systolic pressure is normal. There is mild aortic sclerosis. Trace pulmonic valvular regurgitation. There is no pericardial effusion. Khalif Kelly MD 06/18/2019 03:21 PM
--- NOTE | 2019-06-18 15:56 | EKG ---
Test Reason : Blood Pressure : / mmHG Vent. Rate : 079 BPM Atrial Rate : 079 BPM P-R Int : 146 ms QRS Dur : 082 ms QT Int : 392 ms P-R-T Axes : 032 056 067 degrees QTc Int : 449 ms NORMAL SINUS RHYTHM ANTERIOR INFARCT (CITED ON OR BEFORE 30-JAN-2012) ABNORMAL ECG WHEN COMPARED WITH ECG OF 30-DEC-2017 10:18, NO SIGNIFICANT CHANGE WAS FOUND Confirmed by LAURO SIERRA, ESTHER ([id number]) on 06/18/2019 3:55:54 PM Referred By: Confirmed By:ESTHER RESTREPO MD
[2019-06-18] MEDS: QUINAPRIL HCL 10 MG TABLET (FP) PO SCH (22:43)
[2019-06-19] MEDS ORDERED: PT OWN MED DRAWER 7, Y5N ONE ×2 (09:47→22:01)
[2019-06-19] MEDS: FUROSEMIDE 20 MG TABLET (FP) PO SCH (10:14)
[2019-06-19] MEDS: amLODIPine BESYLATE 10 MG TABLET (FP) PO SCH (10:14)
[2019-06-19] MEDS: HYDROCHLOROTHIAZIDE 25 MG TABLET (FP) PO SCH (10:14)
[2019-06-19] MEDS: NEBIVOLOL 10 MG TABLET (FP) PO SCH (10:14)
[2019-06-19] MEDS: QUINAPRIL HCL 40 MG TABLET (FP) PO SCH (10:15)
--- NOTE | 2019-06-19 14:28 | PN ---
Progress Note, Physician Chief Complaint: Events noted Not in distress History of Present Illness: Patient was seen and examined. Awake and alert. Chart was reviewed Denies chest pain or shortness of breath - Current Medication List Current Medications: Active Medications Amlodipine Besylate (Norvasc -) 10 mg PO DAILY [facility] Last Admin: 06/19/19 10:14 Dose: 10 mg Furosemide (Lasix -) 20 mg PO DAILY [facility] Last Admin: 06/19/19 10:14 Dose: 20 mg Heparin Sodium (Porcine) (Heparin -) 5,000 unit SQ BID [facility] Hydrochlorothiazide (Hctz -) 25 mg PO DAILY [facility] Last Admin: 06/19/19 10:14 Dose: 25 mg Nebivolol (Bystolic -) 10 mg PO DAILY [facility] Last Admin: 06/19/19 10:14 Dose: 10 mg Quinapril HCl (Accupril -) 10 mg PO HS [facility] Last Admin: 06/18/19 22:43 Dose: 10 mg Quinapril HCl (Accupril -) 40 mg PO DAILY [facility] Last Admin: 06/19/19 10:15 Dose: 40 mg Sulfasalazine (Azulfidine En-Tabs -) 500 mg PO QID [facility] Last Admin: 06/19/19 10:05 Dose: 500 mg - Objective Vital Signs: Vital Signs Temperature 98.4 F 06/19/19 10:00 Pulse Rate 76 06/19/19 10:00 Respiratory Rate 18 06/19/19 10:00 Blood Pressure 182/73 H 06/19/19 10:00 O2 Sat by Pulse Oximetry (%) 97 06/19/19 09:00 Eyes: Yes: PERRL HENT: Yes: Atraumatic Neck: Yes: Supple Cardiovascular: Yes: Regular Rate and Rhythm, Murmur (Soft SM), S1, S2 Respiratory: Yes: Diminished Gastrointestinal: Yes: Normal Bowel Sounds, Soft. No: Tenderness Edema: No Labs: CBC, BMP 06/18/19 07:48 06/18/19 05:32 Problem List - Problems (1) Hypertensive heart disease Code(s): I11.9 - HYPERTENSIVE HEART DISEASE WITHOUT HEART FAILURE Qualifiers: Heart failure presence: without heart failure Qualified Code(s): I11.9 - Hypertensive heart disease without heart failure (2) Rheumatoid arthritis Code(s): M06.9 - RHEUMATOID ARTHRITIS, UNSPECIFIED Qualifiers: Rheumatoid arthritis location: unspecified site (3) Chest pain Code(s): R07.9 - CHEST PAIN, UNSPECIFIED Qualifiers: Chest pain type: unspecified Qualified Code(s): R07.9 - Chest pain, unspecified Assessment/Plan 1. Atypical chest pain 2. HTN/HCVD 3. Rheumatoid arthritis 4. UTI PLAN: 1. Echocardiogram was reviewed 2. Continue Accuretic 40/25 mg QD, Bystolic 10 mg QD, Norvasc 10 mg QD and Lasix 20 mg QD Continue present care Khalif Kelly MD
--- NOTE | 2019-06-19 16:58 | PN ---
Progress Note, Physician History of Present Illness: Pt w/o CP, palpitations, SOB, dizziness, abd pain. Pt is not suicidal, not feeling depressed. Pt states that yesterday was upset on her daughter and this is why made those statements - Current Medication List Current Medications: Active Medications Amlodipine Besylate (Norvasc -) [address] [facility] Last Admin: 06/19/19 10:14 Dose: 10 mg Furosemide (Lasix -) [address] [facility] Last Admin: 06/19/19 10:14 Dose: 20 mg Heparin Sodium (Porcine) (Heparin -) 5,[address] [facility] Hydrochlorothiazide (Hctz -) [address] [facility] Last Admin: 06/19/19 10:14 Dose: 25 mg Nebivolol (Bystolic -) [address] [facility] Last Admin: 06/19/19 10:14 Dose: 10 mg Quinapril HCl (Accupril -) [address] [facility] Last Admin: 06/18/19 22:43 Dose: 10 mg Quinapril HCl (Accupril -) [address] [facility] Last Admin: 06/19/19 10:15 Dose: 40 mg Sulfasalazine (Azulfidine En-Tabs -) [address] [facility] Last Admin: 06/19/19 15:15 Dose: 500 mg - Objective Vital Signs: Vital Signs Temperature 98.0 F 06/19/19 14:00 Pulse Rate 70 06/19/19 14:00 Respiratory Rate 20 06/19/19 14:00 Blood Pressure 147/88 06/19/19 14:00 O2 Sat by Pulse Oximetry (%) 97 06/19/19 09:00 Constitutional: Yes: No Distress, Calm Cardiovascular: Yes: Regular Rate and Rhythm, S1, S2 Respiratory: Yes: Regular, CTA Bilaterally. No: Rales Gastrointestinal: Yes: Normal Bowel Sounds, Soft. No: Tenderness Edema: LLE: Trace, RLE: Trace Neurological: Yes: Alert, Oriented Labs: CBC, BMP 06/18/19 07:48 06/18/19 05:32 Problem List - Problems (1) Chest pain Code(s): R07.9 - CHEST PAIN, UNSPECIFIED Qualifiers: Chest pain type: unspecified Qualified Code(s): R07.9 - Chest pain, unspecified (2) Hypertensive heart disease Code(s): I11.9 - HYPERTENSIVE HEART DISEASE WITHOUT HEART FAILURE Qualifiers: Heart failure presence: without heart failure Qualified Code(s): I11.9 - Hypertensive heart disease without heart failure (3) Rheumatoid arthritis Code(s): M06.9 - RHEUMATOID ARTHRITIS, UNSPECIFIED Qualifiers: Rheumatoid arthritis location: unspecified site (4) Back pain Code(s): M54.9 - DORSALGIA, UNSPECIFIED (5) Impaired functional mobility, balance, gait, and endurance Code(s): Z74.09 - OTHER REDUCED MOBILITY Assessment/Plan Cardio and Psychiatry consults are appreciated. To f/u with cardio DC planning
[2019-06-19] MEDS: HEPARIN NA (PORCINE) 5,000 UNITS/ML 1ML VIAL SQ SCH (21:53)
[2019-06-19] MEDS: QUINAPRIL HCL 10 MG TABLET (FP) PO SCH (21:53)
--- NOTE | 2019-06-20 06:41 | PN ---
Progress Note (short form) - Note Progress Note: Chief Complaint: Event noted, notes reviewed, dyspnea improved, denies any chest discomfort History of Present Illness: Seen and examined on telemetry. Event noted, notes reviewed, Event noted, notes reviewed, dyspnea improved, denies any chest discomfort Echocardiography performed June 18, 2019 revealed normal left ventricular size and systolic function with estimated LVEF between 55-60%, LV diastole revealed elevated filling pressures with impaired relaxation, normal right ventricular size and systolic function, mitral annular calcification, mild mitral valve regurgitation, mild tricuspid valve regurgitation with no evidence of pulmonary hypertension, - Current Medication List Current Medications Amlodipine Besylate (Norvasc -) 10 mg PO DAILY [facility] Last Admin: 06/19/19 10:14 Dose: 10 mg Furosemide (Lasix -) 20 mg PO DAILY [facility] Last Admin: 06/19/19 10:14 Dose: 20 mg Heparin Sodium (Porcine) (Heparin -) 5,000 unit SQ BID [facility] Last Admin: 06/19/19 21:53 Dose: Not Given Hydrochlorothiazide (Hctz -) 25 mg PO DAILY [facility] Last Admin: 06/19/19 10:14 Dose: 25 mg Nebivolol (Bystolic -) 10 mg PO DAILY [facility] Last Admin: 06/19/19 10:14 Dose: 10 mg Quinapril HCl (Accupril -) 10 mg PO HS [facility] Last Admin: 06/19/19 21:53 Dose: 10 mg Quinapril HCl (Accupril -) 40 mg PO DAILY [facility] Last Admin: 06/19/19 10:15 Dose: 40 mg Sulfasalazine (Azulfidine En-Tabs -) 500 mg PO QID [facility] Last Admin: 06/19/19 21:53 Dose: 500 mg Review of Systems Cardiovascular: As noted above Respiratory: denies Cough or Sputum Production Gastrointestinal: denies: Nausea, Vomiting, Diarrhea, Constipation or Abdominal Discomfort Musculoskeletal: Degenerate Joint Disease, as noted above Right Arm Discomfort - Objective Vital Signs: Last Vital Signs Temp Pulse Resp BP Pulse Ox 97.7 F 78 18 140/64 94 L 06/20/19 01:39 06/20/19 01:39 06/20/19 01:39 06/20/19 01:39 06/19/19 22:00 Intake & Output 06/17/19 06/18/19 06/19/19 06/20/19 23:59 23:59 23:59 23:59 Intake Total 1080 300 Output Total 780 Balance 300 300 Weight 125 lb 125 lb 125 lb Constitutional: No Distress, Calm Neck: Supple Negative JVD No Bruit Respiratory: Diminished Breath Sounds at the Bases Cardiovascular: S1 S2 Regular Rate Rhythm Gastrointestinal: Soft Benign Normal Bowel Sounds Ext: Trace Edema Labs: CBC, BMP 06/18/19 07:48 06/18/19 05:32 Hepatic Panel Total Bilirubin 0.6 mg/dL (0.2-1) 06/18/19 05:32 AST 18 U/L (15-37) 06/18/19 05:32 ALT 15 U/L (13-61) 06/18/19 05:32 Alkaline Phosphatase 55 U/L (45-117) 06/18/19 05:32 Albumin 3.2 g/dl (3.4-5.0) L 06/18/19 05:32 Blood test pending from this AM ASSESSMENT: 1. Chest pain syndrome atypical for coronary artery disease angina pectoris 2. HTN/HCVD 3. Rheumatoid arthritis 4. Anemia PLAN: 1. Continue Accuretic therapy/equivalent therapy 2. Continue Bystolic 3. Continue Norvasc 4. Continue Lasix 5. Additional cardiovascular evaluation can be performed on outpatient basis if necessary Codie Hudson M.D.
[2019-06-20] MEDS ORDERED: PT OWN MED DRAWER 7, Y5N ONE ×2 (10:52→17:59)
[2019-06-20] MEDS: QUINAPRIL HCL 40 MG TABLET (FP) PO SCH (11:19)
[2019-06-20] MEDS: amLODIPine BESYLATE 10 MG TABLET (FP) PO SCH (11:20)
[2019-06-20] MEDS: FUROSEMIDE 20 MG TABLET (FP) PO SCH (11:20)
[2019-06-20] MEDS: NEBIVOLOL 10 MG TABLET (FP) PO SCH (11:20)
[2019-06-20] MEDS: HEPARIN NA (PORCINE) 5,000 UNITS/ML 1ML VIAL SQ SCH (11:20)
[2019-06-20] MEDS: HYDROCHLOROTHIAZIDE 25 MG TABLET (FP) PO SCH (11:20)
--- NOTE | 2019-06-20 13:36 | PN ---
Progress Note, Physician History of Present Illness: Pt w/o CP, palpitations, SOB, dizziness, abd pain. Pt is not suicidal, not feeling depressed. - Current Medication List Current Medications: Active Medications Amlodipine Besylate (Norvasc -) 10 mg PO DAILY [facility] Last Admin: 06/20/19 11:20 Dose: 10 mg Furosemide (Lasix -) 20 mg PO DAILY [facility] Last Admin: 06/20/19 11:20 Dose: 20 mg Heparin Sodium (Porcine) (Heparin -) 5,000 unit SQ BID [facility] Last Admin: 06/20/19 11:20 Dose: 5,000 unit Hydrochlorothiazide (Hctz -) 25 mg PO DAILY [facility] Last Admin: 06/20/19 11:20 Dose: 25 mg Nebivolol (Bystolic -) 10 mg PO DAILY [facility] Last Admin: 06/20/19 11:20 Dose: 10 mg Quinapril HCl (Accupril -) 10 mg PO HS [facility] Last Admin: 06/19/19 21:53 Dose: 10 mg Quinapril HCl (Accupril -) 40 mg PO DAILY [facility] Last Admin: 06/20/19 11:19 Dose: 40 mg Sulfasalazine (Azulfidine En-Tabs -) 500 mg PO QID [facility] Last Admin: 06/20/19 12:08 Dose: 500 mg - Objective Vital Signs: Vital Signs Temperature 98.4 F 06/20/19 08:41 Pulse Rate 85 06/20/19 08:41 Respiratory Rate 20 06/20/19 08:41 Blood Pressure 190/94 H 06/20/19 08:41 O2 Sat by Pulse Oximetry (%) 96 06/20/19 08:00 Constitutional: Yes: No Distress, Calm Cardiovascular: Yes: Regular Rate and Rhythm, S1, S2 Respiratory: Yes: Regular, CTA Bilaterally. No: Rales Gastrointestinal: Yes: Normal Bowel Sounds, Soft. No: Tenderness Edema: No Neurological: Yes: Alert, Oriented Labs: CBC, BMP 06/18/19 07:48 06/18/19 05:32 Problem List - Problems (1) Chest pain Code(s): R07.9 - CHEST PAIN, UNSPECIFIED Qualifiers: Chest pain type: unspecified Qualified Code(s): R07.9 - Chest pain, unspecified (2) Hypertensive heart disease Code(s): I11.9 - HYPERTENSIVE HEART DISEASE WITHOUT HEART FAILURE Qualifiers: Heart failure presence: without heart failure Qualified Code(s): I11.9 - Hypertensive heart disease without heart failure (3) Rheumatoid arthritis Code(s): M06.9 - RHEUMATOID ARTHRITIS, UNSPECIFIED Qualifiers: Rheumatoid arthritis location: unspecified site (4) Back pain Code(s): M54.9 - DORSALGIA, UNSPECIFIED (5) Impaired functional mobility, balance, gait, and endurance Code(s): Z74.09 - OTHER REDUCED MOBILITY Assessment/Plan Cardio and Psychiatry consults are appreciated. To monitor BP; if improved to DC home Add Hydralalzine 10 mg HS DC planning
--- NOTE | 2019-06-20 14:06 | DS ---
Physical Examination Vital Signs: Vital Signs Temperature 97.9 F 06/20/19 13:39 Pulse Rate 75 06/20/19 13:39 Respiratory Rate 20 06/20/19 13:39 Blood Pressure 146/70 06/20/19 13:39 O2 Sat by Pulse Oximetry (%) 96 06/20/19 08:00 Findings/Remarks: See Progress Note for HPI, ROS, PE. Labs: CBC, BMP 06/18/19 07:48 06/18/19 05:32 Discharge Summary Problems reviewed: Yes Reason For Visit: SUICIDAL IDEATION CHEST PAIN Current Active Problems Back pain (Acute) Chest pain (Acute) Hypertensive heart disease (Acute) Impaired functional mobility, balance, gait, and endurance (Acute) Rheumatoid arthritis (Acute) SOB (shortness of breath) (Acute) Suicidal ideation (Acute) Hospital Course: Pt came to ER for CP, SOB, r/o AL by CE, seen by Cardio (Dr. 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 While in ER pt stated that oesn't want to live, denieded suicidal ideation; pt was placed on 1:1, Psychiatry consult (Dr Denny ) was called and was cleared for 1:1, no medication needed. - Instructions Referrals: Elijah Silvestre MD [Primary Care Provider] - - Home Medications Comprehensive Discharge Medication List: Ambulatory Orders Hydrochlorothiazide 25 mg PO DAILY 01/30/12 Quinapril HCl [Accupril -] 40 mg PO DAILY #0 tablet 02/03/12 Furosemide 20 mg PO DAILY 12/25/16 Amlodipine Besylate [Norvasc -] 10 mg PO DAILY 12/30/17 Fluoxetine HCl 20 mg PO DAILY 06/20/19 Hydralazine HCl 10 mg PO HS #30 tablet MDD 1 06/20/19 Leflunomide 20 mg PO DAILY 06/20/19 Nebivolol [Bystolic -] 10 mg PO DAILY tab 06/20/19 Pramipexole Dihydrochloride [Mirapex -] 0.25 mg PO QID 06/20/19 Quinapril HCl [Accupril -] 10 mg PO HS tablet 06/20/19 Solifenacin Succinate [Vesicare -] 10 mg PO DAILY 06/20/[address] 500 mg PO BID 06/20/19
[2019-06-20 18:18] VITALS: BP 154/73; PULSE 81; TEMP 98
== END 2019-06-20 21:33 | disposition home or self-care (01) ==
LOC: JER 16:56 → INTOOBSV 21:27 → JERBED 21:27 → J4S 06-18 01:06
PROVIDERS: ADMIT Specialist; ATTEND Specialist
PROC: 3E0337Z Introduction of Electrolytic and Water Balance Substance into Peripheral Vein, Percutaneous Approach (ICD-10-PCS; principal; 2019-06-17)
PROC: 3E013GC Introduction of Other Therapeutic Substance into Subcutaneous Tissue, Percutaneous Approach (ICD-10-PCS; 2019-06-17)
DX: R07.89 Other chest pain (principal); N39.0 Urinary tract infection, site not specified; R06.02 Shortness of breath; R45.851 Suicidal ideations; I11.9 Hypertensive heart disease without heart failure; M06.9 Rheumatoid arthritis, unspecified; M48.00 Spinal stenosis, site unspecified; M54.9 Dorsalgia, unspecified; Z74.09 Other reduced mobility; Z87.891 Personal history of nicotine dependence
CPT/HCPCS: 36415; 70450-TC; 71045-TC-FY; 80053; 81003; 82550; 84484; 85025; 85027; 87086; 93005; 93010; 93306-TC; 94761; 96360; 96372; 97116-GP; 97162-GP; 99285-25; G0378; J1644

== ENCOUNTER 2021-08-07 10:02 | Inpatient (IN) | payer OTHER ==
[2021-08-07] MEDS ORDERED: ACETAMINOPHEN 1000 MG/100 ML VIAL IVPB ONE (10:44)
[2021-08-07] MEDS ORDERED: ACETAMINOPHEN INJECTION 100 ML IVPB ONE (10:45)
[2021-08-07] MEDS ORDERED: SODIUM CHLORIDE 0.9% 1000 ML INFUS.BAG IV ONE ×2 (10:50→14:01)
[2021-08-07 11:01] LABS: BASO % 0.5 % (0-2.0); EOS % 0.2 % (0-4.5); HEMATOCRIT 25.7 % (32.4-45.2); HEMOGLOBIN 8.7 GM/dL (10.7-15.3); MCH 33.8 pg (25.7-33.7); MCHC 33.8 g/dl (32.0-36.0); MEAN CELL VOLUME 99.9 fl (80-96); MEAN PLT VOLUME 8.5 fl (7.5-11.1); MONO % 6.3 % (3.8-10.2); PLATELET COUNT 293 10^3/uL (134-434); RBC 2.57 M/mm3 (3.60-5.2); RDW 15.1 % (11.6-15.6); WHITE BLOOD COUNT 13.2 K/mm3 (4.0-10.0)
[2021-08-07 11:07] LABS: INR 1.02 (0.83-1.09); PROTHROMBIN TIME (PATIENT) 11.9 SEC (9.7-13.0)
[2021-08-07 11:09] LABS: ACTIVATED PTT 26.6 SECONDS (25.2-36.5)
[2021-08-07 11:20] LABS: CALCIUM 8.7 mg/dL (8.5-10.1)
[2021-08-07 11:21] LABS: ALBUMIN 3.3 g/dl (3.4-5.0); BLOOD UREA NITROGEN 54.3 mg/dL (7-18)
[2021-08-07 11:24] LABS: CREATININE 1.9 mg/dL (0.55-1.3)
[2021-08-07 11:25] LABS: BILIRUBIN,TOTAL 0.5 mg/dL (0.2-1); TOT PROT 6.2 g/dl (6.4-8.2)
[2021-08-07 11:44] LABS: LACTIC ACID 2.2 mmol/L (0.4-2.0)
[2021-08-07] MEDS ORDERED: PIPERACILLIN/TAZOB 3.375 GM 3.375 GM in DEXTROSE 5%-WATER - 50 ML IVPB ONE (19:02)
[2021-08-07] MEDS ORDERED: VANCOMYCIN 1 GM in D5W (PRE-DOCKED) 1,000 MG/250 ML IVPB ONE (19:02)
[2021-08-07] MEDS ORDERED: VANCOMYCIN 1 GRAM (PRE-DOCKED) 1,000 MG/250 ML BAG IVPB ONE (19:35)
[2021-08-07] MEDS ORDERED: PIPERACILLIN/TAZOB 3.375 GM 3.375 GM/50 ML BAG IVPB ONE (19:35)
[2021-08-08 00:50] VITALS: BMI 20.2
[2021-08-08 08:13] LABS: BASO % 0.4 % (0-2.0); EOS % 3.1 % (0-4.5); HEMATOCRIT 24.7 % (32.4-45.2); HEMOGLOBIN 8.2 GM/dL (10.7-15.3); MCH 33.2 pg (25.7-33.7); MCHC 33.2 g/dl (32.0-36.0); MEAN CELL VOLUME 99.8 fl (80-96); MEAN PLT VOLUME 7.8 fl (7.5-11.1); MONO % 10.9 % (3.8-10.2); NEUT % 73.6 % (42.8-82.8); PLATELET COUNT 226 10^3/uL (134-434); RBC 2.48 M/mm3 (3.60-5.2); RDW 15.3 % (11.6-15.6)
[2021-08-08 08:33] LABS: ALBUMIN 2.9 g/dl (3.4-5.0); BLOOD UREA NITROGEN 38.5 mg/dL (7-18); CALCIUM 8.1 mg/dL (8.5-10.1)
[2021-08-08 08:36] LABS: CREATININE 1.2 mg/dL (0.55-1.3)
[2021-08-08 08:38] LABS: BILIRUBIN,TOTAL 0.5 mg/dL (0.2-1); TOT PROT 5.8 g/dl (6.4-8.2)
[2021-08-08] MEDS ORDERED: PT OWN MED DRAWER 7, Y5N ONE (10:00)
[2021-08-08] MEDS: HEPARIN NA (PORCINE) 5,000 UNITS/ML 1ML VIAL SQ SCH ×2 (10:04→22:13)
[2021-08-08] MEDS: PRAMIPEXOLE DIHYDROCHLORIDE 0.25 MG TABLET PO SCH ×2 (10:04→22:01)
[2021-08-08] MEDS: amLODIPine BESYLATE 10 MG TABLET (FP) PO SCH (10:04)
[2021-08-08] MEDS: FUROSEMIDE 20 MG TABLET (FP) PO SCH (10:04)
[2021-08-08 11:12] LABS: EPI CELLS 17 /uL (0-25.1); HYALINE CASTS 2 /uL (0-3.1); URINE APPEARANCE CLEAR; URINE BACTERIA 11 /uL (0-1359); URINE BILIRUBIN NEGATIVE (NEGATIVE); URINE COLOR YELLOW; URINE GLUCOSE (UA) NEGATIVE (NEGATIVE); URINE KETONE NEGATIVE (NEGATIVE); URINE LEUK ESTERASE NEGATIVE (NEGATIVE); URINE NITRITE NEGATIVE (NEGATIVE); URINE PROTEIN 1+ (NEGATIVE); URINE RBC 17 /uL (0-23.9); URINE UROBILINOGEN 0.2 mg/dL (0.2-1.0); URINE WBC 14 /uL (0-25.8)
[2021-08-08] MEDS: NEBIVOLOL 10 MG TABLET (FP) PO SCH (11:19)
[2021-08-08] MEDS: SOLIFENACIN SUCCINATE 5 MG TAB PO SCH (11:19)
[2021-08-08] MEDS: FLUoxetine HCL 20 MG CAPSULE PO SCH (11:20)
[2021-08-08] MEDS: LEFLUNOMIDE 10 MG TABLET PO SCH (11:20)
[2021-08-08] MEDS ORDERED: DEXTROSE 5%-WATER - 50 ML IVPB ONE (13:33)
[2021-08-08] MEDS ORDERED: cefTRIAXone SODIUM 1 GM VIAL ONE (13:33)
[2021-08-08] MEDS: CEFTRIAXONE 1 GM in DEXTROSE 5%-WATER - 50 ML IVPB SCH (14:24)
[2021-08-08] MEDS: QUINAPRIL HCL 10 MG TABLET PO SCH (22:01)
[2021-08-08] MEDS: hydrALAZINE HCL 10 MG TABLET PO SCH (22:08)
[2021-08-09] MEDS ORDERED: cefTRIAXone SODIUM 1 GM VIAL ONE (08:25)
[2021-08-09] MEDS ORDERED: PT OWN MED DRAWER 7, Y5N ONE ×2 (08:25→20:10)
[2021-08-09] MEDS ORDERED: DEXTROSE 5%-WATER - 50 ML IVPB ONE (08:26)
[2021-08-09] MEDS: PRAMIPEXOLE DIHYDROCHLORIDE 0.25 MG TABLET PO SCH ×2 (10:07→21:53)
[2021-08-09] MEDS: CEFTRIAXONE 1 GM in DEXTROSE 5%-WATER - 50 ML IVPB SCH (10:07)
[2021-08-09] MEDS: amLODIPine BESYLATE 10 MG TABLET (FP) PO SCH (10:07)
[2021-08-09] MEDS: FUROSEMIDE 20 MG TABLET (FP) PO SCH (10:07)
[2021-08-09] MEDS: HEPARIN NA (PORCINE) 5,000 UNITS/ML 1ML VIAL SQ SCH ×2 (10:07→21:53)
[2021-08-09] MEDS: LEFLUNOMIDE 10 MG TABLET PO SCH (10:08)
[2021-08-09] MEDS: SOLIFENACIN SUCCINATE 5 MG TAB PO SCH (10:08)
[2021-08-09] MEDS: NEBIVOLOL 10 MG TABLET (FP) PO SCH (10:09)
[2021-08-09] MEDS: FLUoxetine HCL 20 MG CAPSULE PO SCH (10:09)
[2021-08-09 10:33] LABS: ALBUMIN 2.6 g/dl (3.4-5.0); BLOOD UREA NITROGEN 34.6 mg/dL (7-18); CALCIUM 7.8 mg/dL (8.5-10.1)
[2021-08-09 10:35] LABS: CREATININE 1.3 mg/dL (0.55-1.3)
[2021-08-09 10:38] LABS: BILIRUBIN,TOTAL 0.4 mg/dL (0.2-1); TOT PROT 5.6 g/dl (6.4-8.2)
[2021-08-09 10:42] LABS: N-TERMINAL BNP 2111.1 pg/ml (5-450)
[2021-08-09] MEDS ORDERED: ONDANSETRON 4 MG/2 ML VIAL IVPUSH PRN (17:55)
[2021-08-09] MEDS: hydrALAZINE HCL 10 MG TABLET PO SCH (21:53)
[2021-08-09] MEDS: QUINAPRIL HCL 10 MG TABLET PO SCH (21:53)
[2021-08-10] MEDS ORDERED: cefTRIAXone SODIUM 1 GM VIAL ONE (11:19)
[2021-08-10] MEDS ORDERED: DEXTROSE 5%-WATER - 50 ML IVPB ONE (11:20)
[2021-08-10 13:25] LABS: BASO % 0.3 % (0-2.0); EOS % 0.6 % (0-4.5); HEMATOCRIT 26.1 % (32.4-45.2); HEMOGLOBIN 8.8 GM/dL (10.7-15.3); LYMPH % 6.2 % (8-40); MCH 33.5 pg (25.7-33.7); MCHC 33.7 g/dl (32.0-36.0); MEAN CELL VOLUME 99.7 fl (80-96); MEAN PLT VOLUME 8.3 fl (7.5-11.1); MONO % 6.5 % (3.8-10.2); NEUT % 86.4 % (42.8-82.8); PLATELET COUNT 222 10^3/uL (134-434); RBC 2.62 M/mm3 (3.60-5.2); WHITE BLOOD COUNT 5.5 K/mm3 (4.0-10.0)
[2021-08-10 13:50] LABS: CALCIUM 7.8 mg/dL (8.5-10.1)
[2021-08-10 13:51] LABS: BLOOD UREA NITROGEN 38.4 mg/dL (7-18)
[2021-08-10 13:54] LABS: CREATININE 1.4 mg/dL (0.55-1.3)
[2021-08-10] MEDS: LEFLUNOMIDE 10 MG TABLET PO SCH (14:05)
[2021-08-10] MEDS: SOLIFENACIN SUCCINATE 5 MG TAB PO SCH (14:05)
[2021-08-10] MEDS: FERROUS SO4 325 MG TABLET (FP) PO SCH (14:06)
[2021-08-10] MEDS: LACTOBACILLUS ACIDOPHILUS 1 TABLET PO SCH (14:06)
[2021-08-10] MEDS: HEPARIN NA (PORCINE) 5,000 UNITS/ML 1ML VIAL SQ SCH ×2 (14:06→21:25)
[2021-08-10] MEDS: PRAMIPEXOLE DIHYDROCHLORIDE 0.25 MG TABLET PO SCH ×2 (14:06→21:25)
[2021-08-10] MEDS: FLUoxetine HCL 20 MG CAPSULE PO SCH (14:06)
[2021-08-10] MEDS: NEBIVOLOL 10 MG TABLET (FP) PO SCH (14:06)
[2021-08-10] MEDS: amLODIPine BESYLATE 10 MG TABLET (FP) PO SCH (14:07)
[2021-08-10] MEDS: FUROSEMIDE 20 MG TABLET (FP) PO SCH (14:07)
[2021-08-10] MEDS: CEFTRIAXONE 1 GM in DEXTROSE 5%-WATER - 50 ML IVPB SCH (14:07)
[2021-08-10] MEDS ORDERED: INSULIN (LEVEMIR) 100 UNITS/ML UNITS SQ ONE (18:31)
[2021-08-10] MEDS ORDERED: INSULIN (NOVOLOG) ASPART 100 UNITS/ML 10ML VIAL ONE (18:31)
[2021-08-10] MEDS ORDERED: PT OWN MED DRAWER 7, Y5N ONE (21:08)
[2021-08-10] MEDS: QUINAPRIL HCL 10 MG TABLET PO SCH (21:24)
[2021-08-10] MEDS: hydrALAZINE HCL 10 MG TABLET PO SCH (21:25)
[2021-08-11] MEDS ORDERED: DEXTROSE 5%-WATER - 50 ML IVPB ONE (08:47)
[2021-08-11] MEDS ORDERED: cefTRIAXone SODIUM 1 GM VIAL ONE (08:47)
[2021-08-11] MEDS ORDERED: PT OWN MED DRAWER 7, Y5N ONE (08:47)
[2021-08-11] MEDS: SOLIFENACIN SUCCINATE 5 MG TAB PO SCH (10:21)
[2021-08-11] MEDS: CEFTRIAXONE 1 GM in DEXTROSE 5%-WATER - 50 ML IVPB SCH (10:21)
[2021-08-11] MEDS: FERROUS SO4 325 MG TABLET (FP) PO SCH (10:21)
[2021-08-11] MEDS: NEBIVOLOL 10 MG TABLET (FP) PO SCH (10:21)
[2021-08-11] MEDS: HEPARIN NA (PORCINE) 5,000 UNITS/ML 1ML VIAL SQ SCH ×2 (10:21→21:02)
[2021-08-11] MEDS: POTASSIUM CHLORIDE TABS 10 MEQ TABLET.ER (FP) PO SCH (10:22)
[2021-08-11] MEDS: amLODIPine BESYLATE 10 MG TABLET (FP) PO SCH (10:22)
[2021-08-11] MEDS: FLUoxetine HCL 20 MG CAPSULE PO SCH (10:22)
[2021-08-11] MEDS: LACTOBACILLUS ACIDOPHILUS 1 TABLET PO SCH (10:22)
[2021-08-11] MEDS: PRAMIPEXOLE DIHYDROCHLORIDE 0.25 MG TABLET PO SCH ×2 (10:22→21:02)
[2021-08-11] MEDS: FUROSEMIDE 20 MG TABLET (FP) PO SCH (10:22)
[2021-08-11] MEDS: LEFLUNOMIDE 10 MG TABLET PO SCH (10:23)
[2021-08-11] MEDS: CEFUROXIME AXETIL 500 MG TABLET PO SCH ×2 (11:18→21:02)
[2021-08-11] MEDS: hydrALAZINE HCL 10 MG TABLET PO SCH (21:02)
[2021-08-11] MEDS: QUINAPRIL HCL 10 MG TABLET PO SCH (21:02)
[2021-08-12] MEDS ORDERED: PT OWN MED DRAWER 7, Y5N ONE ×3 (09:00→23:30)
[2021-08-12] MEDS: LEFLUNOMIDE 10 MG TABLET PO SCH (09:18)
[2021-08-12] MEDS: LACTOBACILLUS ACIDOPHILUS 1 TABLET PO SCH (09:19)
[2021-08-12 09:21] LABS: BASO % 0.2 % (0-2.0); EOS % 1.2 % (0-4.5); HEMATOCRIT 23.8 % (32.4-45.2); LYMPH % 12.8 % (8-40); MCHC 33.5 g/dl (32.0-36.0); MEAN CELL VOLUME 101.6 fl (80-96); MEAN PLT VOLUME 8.1 fl (7.5-11.1); MONO % 8.4 % (3.8-10.2); NEUT % 77.4 % (42.8-82.8); PLATELET COUNT 227 10^3/uL (134-434); RBC 2.35 M/mm3 (3.60-5.2); RDW 15.1 % (11.6-15.6); RETICULOCYTES 3.69 % (0.5-1.5); WHITE BLOOD COUNT 7.5 K/mm3 (4.0-10.0)
[2021-08-12] MEDS: CEFUROXIME AXETIL 500 MG TABLET PO SCH (09:21)
[2021-08-12] MEDS: HEPARIN NA (PORCINE) 5,000 UNITS/ML 1ML VIAL SQ SCH ×2 (09:21→23:00)
[2021-08-12] MEDS: FERROUS SO4 325 MG TABLET (FP) PO SCH (09:21)
[2021-08-12] MEDS: NEBIVOLOL 10 MG TABLET (FP) PO SCH (09:21)
[2021-08-12] MEDS: POTASSIUM CHLORIDE TABS 10 MEQ TABLET.ER (FP) PO SCH (09:21)
[2021-08-12] MEDS: amLODIPine BESYLATE 10 MG TABLET (FP) PO SCH (09:22)
[2021-08-12] MEDS: PRAMIPEXOLE DIHYDROCHLORIDE 0.25 MG TABLET PO SCH ×2 (09:22→23:00)
[2021-08-12] MEDS: SOLIFENACIN SUCCINATE 5 MG TAB PO SCH (09:23)
[2021-08-12] MEDS: FLUoxetine HCL 20 MG CAPSULE PO SCH (09:23)
[2021-08-12 09:58] LABS: CALCIUM 7.8 mg/dL (8.5-10.1)
[2021-08-12 09:59] LABS: BLOOD UREA NITROGEN 44.3 mg/dL (7-18)
[2021-08-12 10:02] LABS: CREATININE 1.8 mg/dL (0.55-1.3)
[2021-08-12] MEDS ORDERED: SODIUM CHLORIDE 1,000 ML IV SCH (15:45)
[2021-08-12] MEDS: SILVER SULFADIAZINE 1% TOP CREAM 50 GM JAR TP SCH (15:49)
[2021-08-12] MEDS ORDERED: BANATROL PLUS POWDER PACKET PO ONE (19:30)
[2021-08-13] MEDS: SILVER SULFADIAZINE 1% TOP CREAM 50 GM JAR TP SCH (10:00)
[2021-08-13] MEDS: hydrALAZINE HCL 10 MG TABLET PO SCH ×2 (10:24→21:54)
[2021-08-13] MEDS: LACTOBACILLUS ACIDOPHILUS 1 TABLET PO SCH (10:26)
[2021-08-13] MEDS: FLUoxetine HCL 20 MG CAPSULE PO SCH (10:26)
[2021-08-13] MEDS: SOLIFENACIN SUCCINATE 5 MG TAB PO SCH (10:26)
[2021-08-13] MEDS: FERROUS SO4 325 MG TABLET (FP) PO SCH (10:27)
[2021-08-13] MEDS: LEFLUNOMIDE 10 MG TABLET PO SCH (10:27)
[2021-08-13] MEDS: amLODIPine BESYLATE 10 MG TABLET (FP) PO SCH (10:28)
[2021-08-13] MEDS: NEBIVOLOL 10 MG TABLET (FP) PO SCH (10:28)
[2021-08-13] MEDS: POTASSIUM CHLORIDE TABS 10 MEQ TABLET.ER (FP) PO SCH (10:28)
[2021-08-13] MEDS: PRAMIPEXOLE DIHYDROCHLORIDE 0.25 MG TABLET PO SCH ×2 (10:28→21:54)
[2021-08-13] MEDS: HEPARIN NA (PORCINE) 5,000 UNITS/ML 1ML VIAL SQ SCH ×2 (10:31→21:54)
[2021-08-13] MEDS ORDERED: LOPERAMIDE HCL 2 MG CAPSULE PO PRN (10:55)
[2021-08-13 12:46] LABS: HEMATOCRIT 23.7 % (32.4-45.2); HEMOGLOBIN 7.9 GM/dL (10.7-15.3); MCH 33.7 pg (25.7-33.7); MCHC 33.3 g/dl (32.0-36.0); MEAN PLT VOLUME 8.4 fl (7.5-11.1); PLATELET COUNT 253 10^3/uL (134-434); RBC 2.35 M/mm3 (3.60-5.2); RDW 14.9 % (11.6-15.6); WHITE BLOOD COUNT 7.8 K/mm3 (4.0-10.0)
[2021-08-13 12:55] LABS: BLOOD UREA NITROGEN 40.9 mg/dL (7-18)
[2021-08-13 12:58] LABS: CREATININE 1.4 mg/dL (0.55-1.3)
[2021-08-13] MEDS ORDERED: PT OWN MED DRAWER 7, Y5N ONE (21:47)
[2021-08-14 08:06] LABS: BASO % 0.6 % (0-2.0); EOS % 3.9 % (0-4.5); HEMOGLOBIN 7.5 GM/dL (10.7-15.3); LYMPH % 20.2 % (8-40); MCH 32.6 pg (25.7-33.7); MCHC 32.8 g/dl (32.0-36.0); MEAN CELL VOLUME 99.5 fl (80-96); MEAN PLT VOLUME 7.7 fl (7.5-11.1); MONO % 10.3 % (3.8-10.2); PLATELET COUNT 277 10^3/uL (134-434); RBC 2.31 M/mm3 (3.60-5.2); RDW 14.9 % (11.6-15.6); WHITE BLOOD COUNT 6.3 K/mm3 (4.0-10.0)
[2021-08-14 08:22] LABS: BLOOD UREA NITROGEN 36.4 mg/dL (7-18); CALCIUM 8.1 mg/dL (8.5-10.1)
[2021-08-14 08:23] LABS: ALBUMIN 2.6 g/dl (3.4-5.0)
[2021-08-14 08:26] LABS: CREATININE 1.3 mg/dL (0.55-1.3)
[2021-08-14 08:27] LABS: BILIRUBIN,TOTAL 0.3 mg/dL (0.2-1); TOT PROT 5.2 g/dl (6.4-8.2)
[2021-08-14] MEDS: NEBIVOLOL 10 MG TABLET (FP) PO SCH (09:06)
[2021-08-14] MEDS: LACTOBACILLUS ACIDOPHILUS 1 TABLET PO SCH (09:06)
[2021-08-14] MEDS: FERROUS SO4 325 MG TABLET (FP) PO SCH (09:06)
[2021-08-14] MEDS: POTASSIUM CHLORIDE TABS 10 MEQ TABLET.ER (FP) PO SCH (09:07)
[2021-08-14] MEDS: FLUoxetine HCL 20 MG CAPSULE PO SCH (09:07)
[2021-08-14] MEDS: amLODIPine BESYLATE 10 MG TABLET (FP) PO SCH (09:07)
[2021-08-14] MEDS: SOLIFENACIN SUCCINATE 5 MG TAB PO SCH (09:07)
[2021-08-14] MEDS: HEPARIN NA (PORCINE) 5,000 UNITS/ML 1ML VIAL SQ SCH ×2 (09:08→21:27)
[2021-08-14] MEDS: LEFLUNOMIDE 10 MG TABLET PO SCH (09:12)
[2021-08-14] MEDS: SILVER SULFADIAZINE 1% TOP CREAM 50 GM JAR TP SCH (09:13)
[2021-08-14] MEDS: PRAMIPEXOLE DIHYDROCHLORIDE 0.25 MG TABLET PO SCH ×2 (09:15→21:27)
[2021-08-14] MEDS: FOLIC ACID 1 MG TABLET (FP) PO SCH (16:43)
[2021-08-14] MEDS ORDERED: PT OWN MED DRAWER 7, Y5N ONE (21:15)
[2021-08-14] MEDS: hydrALAZINE HCL 10 MG TABLET PO SCH (21:27)
[2021-08-15] MEDS ORDERED: FERRIC CARBOXYMALTOSE 750 MG in SODIUM CHLORIDE 250 ML IVPB ONE (08:22)
[2021-08-15 10:43] LABS: BASO % 0.5 % (0-2.0); EOS % 2.6 % (0-4.5); HEMATOCRIT 24.4 % (32.4-45.2); HEMOGLOBIN 8.6 GM/dL (10.7-15.3); LYMPH % 25.3 % (8-40); MCH 34.9 pg (25.7-33.7); MCHC 35.3 g/dl (32.0-36.0); MEAN PLT VOLUME 7.8 fl (7.5-11.1); MONO % 8.6 % (3.8-10.2); PLATELET COUNT 387 10^3/uL (134-434); RBC 2.47 M/mm3 (3.60-5.2); RDW 15.1 % (11.6-15.6); WHITE BLOOD COUNT 7.5 K/mm3 (4.0-10.0)
[2021-08-15 11:14] LABS: ALBUMIN 2.8 g/dl (3.4-5.0); BLOOD UREA NITROGEN 35.8 mg/dL (7-18); CALCIUM 8.5 mg/dL (8.5-10.1)
[2021-08-15 11:17] LABS: CREATININE 1.4 mg/dL (0.55-1.3)
[2021-08-15 11:18] LABS: BILIRUBIN,TOTAL 0.4 mg/dL (0.2-1); TOT PROT 5.9 g/dl (6.4-8.2)
[2021-08-15] MEDS: FLUoxetine HCL 20 MG CAPSULE PO SCH (11:53)
[2021-08-15] MEDS: NEBIVOLOL 10 MG TABLET (FP) PO SCH (11:53)
[2021-08-15] MEDS: POTASSIUM CHLORIDE TABS 10 MEQ TABLET.ER (FP) PO SCH (11:54)
[2021-08-15] MEDS: amLODIPine BESYLATE 10 MG TABLET (FP) PO SCH (11:54)
[2021-08-15] MEDS: SOLIFENACIN SUCCINATE 5 MG TAB PO SCH (11:54)
[2021-08-15] MEDS: LACTOBACILLUS ACIDOPHILUS 1 TABLET PO SCH (11:54)
[2021-08-15] MEDS: PRAMIPEXOLE DIHYDROCHLORIDE 0.25 MG TABLET PO SCH ×2 (11:54→21:50)
[2021-08-15] MEDS: FOLIC ACID 1 MG TABLET (FP) PO SCH (11:54)
[2021-08-15] MEDS: SILVER SULFADIAZINE 1% TOP CREAM 50 GM JAR TP SCH (11:56)
[2021-08-15] MEDS: LEFLUNOMIDE 10 MG TABLET PO SCH (14:49)
[2021-08-15] MEDS ORDERED: PT OWN MED DRAWER 7, Y5N ONE (21:45)
[2021-08-15] MEDS: hydrALAZINE HCL 10 MG TABLET PO SCH (21:50)
[2021-08-16 08:04] LABS: PHOSPHOROUS 2.3 mg/dL (2.5-4.9)
[2021-08-16 08:06] LABS: BASO % 0.7 % (0-2.0); EOS % 2.4 % (0-4.5); HEMATOCRIT 23.7 % (32.4-45.2); HEMOGLOBIN 8.4 GM/dL (10.7-15.3); LYMPH % 17.4 % (8-40); MCH 34.6 pg (25.7-33.7); MCHC 35.3 g/dl (32.0-36.0); MEAN CELL VOLUME 98.1 fl (80-96); MEAN PLT VOLUME 7.7 fl (7.5-11.1); MONO % 10.8 % (3.8-10.2); NEUT % 68.7 % (42.8-82.8); PLATELET COUNT 361 10^3/uL (134-434); RBC 2.42 M/mm3 (3.60-5.2); WHITE BLOOD COUNT 7.6 K/mm3 (4.0-10.0)
[2021-08-16 10:36] LABS: ERYTHROCYTE SEDIMENTATION RATE 24 mm/hr (0-30)
[2021-08-16] MEDS: SOLIFENACIN SUCCINATE 5 MG TAB PO SCH (10:36)
[2021-08-16] MEDS: amLODIPine BESYLATE 10 MG TABLET (FP) PO SCH (10:36)
[2021-08-16] MEDS: LACTOBACILLUS ACIDOPHILUS 1 TABLET PO SCH (10:36)
[2021-08-16] MEDS: NEBIVOLOL 10 MG TABLET (FP) PO SCH (10:36)
[2021-08-16] MEDS: POTASSIUM CHLORIDE TABS 10 MEQ TABLET.ER (FP) PO SCH (10:36)
[2021-08-16] MEDS: PRAMIPEXOLE DIHYDROCHLORIDE 0.25 MG TABLET PO SCH ×2 (10:36→21:59)
[2021-08-16] MEDS: FLUoxetine HCL 20 MG CAPSULE PO SCH (10:36)
[2021-08-16] MEDS: FOLIC ACID 1 MG TABLET (FP) PO SCH (10:37)
[2021-08-16] MEDS: LEFLUNOMIDE 10 MG TABLET PO SCH (10:37)
[2021-08-16] MEDS: SILVER SULFADIAZINE 1% TOP CREAM 50 GM JAR TP SCH (10:38)
[2021-08-16 15:06] LABS: EPI CELLS 12 /uL (0-25.1); HYALINE CASTS 3 /uL (0-3.1); PH,URINE 5.5 (5.0-8.0); URINE APPEARANCE CLEAR; URINE BACTERIA 10 /uL (0-1359); URINE BILIRUBIN NEGATIVE (NEGATIVE); URINE COLOR DK YELLOW; URINE GLUCOSE (UA) NEGATIVE (NEGATIVE); URINE KETONE NEGATIVE (NEGATIVE); URINE LEUK ESTERASE TRACE (NEGATIVE); URINE NITRITE NEGATIVE (NEGATIVE); URINE PROTEIN 1+ (NEGATIVE); URINE RBC 21 /uL (0-23.9); URINE UROBILINOGEN 0.2 mg/dL (0.2-1.0); URINE WBC 8 /uL (0-25.8)
[2021-08-16] MEDS: hydrALAZINE HCL 10 MG TABLET PO SCH (21:59)
[2021-08-17] MEDS ORDERED: PT OWN MED DRAWER 7, Y5N ONE (10:06)
[2021-08-17] MEDS: LACTOBACILLUS ACIDOPHILUS 1 TABLET PO SCH (10:12)
[2021-08-17] MEDS: PRAMIPEXOLE DIHYDROCHLORIDE 0.25 MG TABLET PO SCH (10:12)
[2021-08-17] MEDS: FOLIC ACID 1 MG TABLET (FP) PO SCH (10:12)
[2021-08-17] MEDS: POTASSIUM CHLORIDE TABS 10 MEQ TABLET.ER (FP) PO SCH (10:12)
[2021-08-17] MEDS: NEBIVOLOL 10 MG TABLET (FP) PO SCH (10:13)
[2021-08-17] MEDS: amLODIPine BESYLATE 10 MG TABLET (FP) PO SCH (10:13)
[2021-08-17] MEDS: LEFLUNOMIDE 10 MG TABLET PO SCH (10:14)
[2021-08-17] MEDS: FLUoxetine HCL 20 MG CAPSULE PO SCH (10:14)
[2021-08-17] MEDS: SILVER SULFADIAZINE 1% TOP CREAM 50 GM JAR TP SCH (10:15)
[2021-08-17] MEDS: SOLIFENACIN SUCCINATE 5 MG TAB PO SCH (10:15)
[2021-08-17 15:25] VITALS: BP 141/74; PULSE 73; TEMP 97.8
== END 2021-08-17 16:45 | disposition home health service (06) | DRG 812 ==
LOC: JER 10:02 → JERBED 15:09 → J7W 23:13
PROVIDERS: ADMIT Internal Medicine; ATTEND Internal Medicine
DX: D53.8 Other specified nutritional anemias (principal); N17.9 Acute kidney failure, unspecified; E87.2 Acidosis; D64.9 Anemia, unspecified; R09.02 Hypoxemia; R50.9 Fever, unspecified; M06.9 Rheumatoid arthritis, unspecified; R19.7 Diarrhea, unspecified; T45.1X5A Adverse effect of antineoplastic and immunosuppressive drugs, initial encounter; Y92.89 Other specified places as the place of occurrence of the external cause; I10 Essential (primary) hypertension; D72.829 Elevated white blood cell count, unspecified; M48.00 Spinal stenosis, site unspecified
CPT/HCPCS: 36415; 71045-TC-FY; 71275-TC; 80048; 80053; 81003; 82136; 82272; 82570; 82607; 82728; 82746; 83010; 83540; 83550; 83605; 83615; 83735; 83880; 83918; 84100; 84238; 84300; 84466; 84484; 85025; 85027; 85045; 85610; 85651; 85730; 86140; 86431; 86850; 86900; 86901; 86922; 87040; 87045; 87046; 87086; 87177; 87209; 87324; 87449; 87804; 93005; 93010; 93306-TC; 94761; 97116-GP; 99285-25; C9803; J0131; J1439; J1644; U0003; U0005

== ENCOUNTER 2021-08-23 16:56 | Inpatient (IN) | payer OTHER ==
[2021-08-23 18:06] VITALS: BMI 20.2
[2021-08-23] MEDS ORDERED: SODIUM CHLORIDE 0.9% 500 ML INFUS.BAG IV ONE (18:39)
[2021-08-23] MEDS ORDERED: PIPERACILLIN/TAZOB 4.5 GM 4.5 GM in DEXTROSE 5%-WATER 100 ML IVPB ONE (18:39)
[2021-08-23] MEDS ORDERED: ACETAMINOPHEN 1000 MG/100 ML BAG IVPB ONE (18:41)
[2021-08-23] MEDS ORDERED: PIPERACILLIN/TAZOB 4.5 GM 4.5 GM/100 ML BAG IVPB ONE (19:33)
[2021-08-23] MEDS ORDERED: ACETAMINOPHEN INJECTION 100 ML IVPB ONE (19:33)
[2021-08-23 20:00] LABS: BASO % 0.4 % (0-2.0); EOS % 0.1 % (0-4.5); HEMATOCRIT 29.6 % (32.4-45.2); HEMOGLOBIN 9.8 GM/dL (10.7-15.3); LYMPH % 6.6 % (8-40); MCH 33.6 pg (25.7-33.7); MEAN CELL VOLUME 101.8 fl (80-96); MEAN PLT VOLUME 8.3 fl (7.5-11.1); MONO % 7.3 % (3.8-10.2); NEUT % 85.6 % (42.8-82.8); PLATELET COUNT 361 10^3/uL (134-434); RBC 2.91 M/mm3 (3.60-5.2); WHITE BLOOD COUNT 16.3 K/mm3 (4.0-10.0)
[2021-08-23 20:12] LABS: INR 1.07 (0.83-1.09); PROTHROMBIN TIME (PATIENT) 12.5 SEC (9.7-13.0)
[2021-08-23 20:15] LABS: ACTIVATED PTT 26.4 SECONDS (25.2-36.5)
[2021-08-23 20:32] LABS: CALCIUM 8.6 mg/dL (8.5-10.1)
[2021-08-23 20:36] LABS: CREATININE 3.3 mg/dL (0.55-1.3)
[2021-08-23 20:38] LABS: BILIRUBIN,TOTAL 0.3 mg/dL (0.2-1); TOT PROT 6.7 g/dl (6.4-8.2)
[2021-08-23 20:45] LABS: BLOOD UREA NITROGEN 89.5 mg/dL (7-18)
[2021-08-23] MEDS ORDERED: morphine CARPU-JECT 2 MG/1 ML DISP.SYRIN IVPUSH ONE (23:47)
[2021-08-24] MEDS ORDERED: VANCOMYCIN 1 GM in D5W (PRE-DOCKED) 1,000 MG/250 ML IVPB ONE (00:02)
[2021-08-24] MEDS ORDERED: VANCOMYCIN 750 MG in DEXTROSE 5%-WATER - 100 ML IVPB ONE (00:06)
[2021-08-24] MEDS ORDERED: ASPIRIN 81 MG CHEWABLE TABLETS PO ONE (00:55)
[2021-08-24] MEDS ORDERED: ASPIRIN 81 MG CHEWABLE TABLETS ONE (01:07)
[2021-08-24 02:44] LABS: URINE APPEARANCE CLEAR; URINE BILIRUBIN NEGATIVE (NEGATIVE); URINE COLOR DK YELLOW; URINE GLUCOSE (UA) NEGATIVE (NEGATIVE); URINE KETONE NEGATIVE (NEGATIVE); URINE LEUK ESTERASE NEGATIVE (NEGATIVE); URINE NITRITE NEGATIVE (NEGATIVE); URINE PROTEIN TRACE (NEGATIVE); URINE UROBILINOGEN 0.2 mg/dL (0.2-1.0)
[2021-08-24] MEDS ORDERED: FERROUS SO4 325 MG TABLET (FP) ONE (09:08)
[2021-08-24] MEDS ORDERED: FOLIC ACID 1 MG TABLET (FP) ONE (09:08)
[2021-08-24] MEDS ORDERED: amLODIPine BESYLATE 5 MG TABLET (FP) ONE (09:08)
[2021-08-24] MEDS ORDERED: HEPARIN NA (PORCINE) 5,000 UNITS/ML 1ML VIAL ONE ×2 (09:08→22:21)
[2021-08-24] MEDS ORDERED: PT OWN MED DRAWER 7, Y5N ONE (09:09)
[2021-08-24] MEDS: HEPARIN NA (PORCINE) 5,000 UNITS/ML 1ML VIAL SQ SCH ×2 (10:10→23:13)
[2021-08-24] MEDS: SOLIFENACIN SUCCINATE 5 MG TAB PO SCH (10:40)
[2021-08-24] MEDS: FLUoxetine HCL 20 MG CAPSULE PO SCH (10:40)
[2021-08-24] MEDS: FOLIC ACID 1 MG TABLET (FP) PO SCH (10:47)
[2021-08-24] MEDS: amLODIPine BESYLATE 10 MG TABLET (FP) PO SCH (10:47)
[2021-08-24] MEDS: NEBIVOLOL 10 MG TABLET (FP) PO SCH (10:48)
[2021-08-24] MEDS: FERROUS SO4 325 MG TABLET (FP) PO SCH (10:48)
[2021-08-24] MEDS: LEFLUNOMIDE 10 MG TABLET PO SCH (10:48)
[2021-08-24] MEDS: hydrALAZINE HCL 10 MG TABLET PO SCH (23:14)
[2021-08-25] MEDS: SILVER SULFADIAZINE 1% TOP CREAM 50 GM JAR TP SCH ×2 (01:42→15:01)
[2021-08-25] MEDS ORDERED: FOLIC ACID 1 MG TABLET (FP) ONE (11:44)
[2021-08-25] MEDS ORDERED: FERROUS SO4 325 MG TABLET (FP) ONE (11:44)
[2021-08-25] MEDS: FOLIC ACID 1 MG TABLET (FP) PO SCH (11:45)
[2021-08-25] MEDS: LEFLUNOMIDE 10 MG TABLET PO SCH (11:45)
[2021-08-25] MEDS: amLODIPine BESYLATE 10 MG TABLET (FP) PO SCH (11:45)
[2021-08-25] MEDS: NEBIVOLOL 10 MG TABLET (FP) PO SCH (11:45)
[2021-08-25] MEDS: SOLIFENACIN SUCCINATE 5 MG TAB PO SCH (11:45)
[2021-08-25] MEDS: FERROUS SO4 325 MG TABLET (FP) PO SCH (11:45)
[2021-08-25] MEDS: FLUoxetine HCL 20 MG CAPSULE PO SCH (11:45)
[2021-08-25] MEDS ORDERED: SILVER SULFADIAZINE 1% TOP CREAM 50 GM JAR TP ONE (11:46)
[2021-08-25] MEDS ORDERED: HEPARIN NA (PORCINE) 5,000 UNITS/ML 1ML VIAL ONE (11:46)
[2021-08-25] MEDS: HEPARIN NA (PORCINE) 5,000 UNITS/ML 1ML VIAL SQ SCH ×2 (11:47→23:21)
[2021-08-25 13:52] LABS: BASO % 0.8 % (0-2.0); EOS % 0.6 % (0-4.5); HEMATOCRIT 28.2 % (32.4-45.2); HEMOGLOBIN 9.3 GM/dL (10.7-15.3); MCH 33.6 pg (25.7-33.7); MCHC 32.8 g/dl (32.0-36.0); MEAN CELL VOLUME 102.5 fl (80-96); MEAN PLT VOLUME 8.4 fl (7.5-11.1); MONO % 6.7 % (3.8-10.2); NEUT % 83.9 % (42.8-82.8); PLATELET COUNT 327 10^3/uL (134-434); RBC 2.75 M/mm3 (3.60-5.2); RDW 16.3 % (11.6-15.6); WHITE BLOOD COUNT 12.2 K/mm3 (4.0-10.0)
[2021-08-25 14:16] LABS: CHLORIDE 106 mmol/L (98-107); SODIUM 139 mmol/L (136-145)
[2021-08-25 14:17] LABS: CALCIUM 8.4 mg/dL (8.5-10.1)
[2021-08-25 14:18] LABS: ANION GAP 15 MMOL/L (8-16); CO2 18 mmol/L (21-32); GLUCOSE,RANDOM 74 mg/dL (74-106)
[2021-08-25 14:21] LABS: CREATININE 3.2 mg/dL (0.55-1.3)
[2021-08-25] MEDS ORDERED: LACTATED RINGERS SOLUTION 1,000 ML/1,000 ML INFUS.BAG IV SCH (14:45)
[2021-08-25 14:47] LABS: BLOOD UREA NITROGEN 104.6 mg/dL (7-18)
[2021-08-25] MEDS: hydrALAZINE HCL 10 MG TABLET PO SCH (23:21)
[2021-08-26 07:10] LABS: BASO % 0.6 % (0-2.0); EOS % 0.6 % (0-4.5); HEMATOCRIT 27.1 % (32.4-45.2); HEMOGLOBIN 8.9 GM/dL (10.7-15.3); LYMPH % 7.3 % (8-40); MEAN CELL VOLUME 103.1 fl (80-96); MEAN PLT VOLUME 7.7 fl (7.5-11.1); MONO % 7.3 % (3.8-10.2); NEUT % 84.2 % (42.8-82.8); PLATELET COUNT 281 10^3/uL (134-434); RBC 2.63 M/mm3 (3.60-5.2); RDW 15.9 % (11.6-15.6); WHITE BLOOD COUNT 9.9 K/mm3 (4.0-10.0)
[2021-08-26 07:35] LABS: CHLORIDE 107 mmol/L (98-107); SODIUM 138 mmol/L (136-145)
[2021-08-26 07:40] LABS: CALCIUM 8.1 mg/dL (8.5-10.1)
[2021-08-26 07:41] LABS: ANION GAP 14 MMOL/L (8-16); CO2 18 mmol/L (21-32); GLUCOSE,RANDOM 75 mg/dL (74-106)
[2021-08-26 07:42] LABS: IRON SERUM 39 ug/dL (50-175)
[2021-08-26 07:44] LABS: CREATININE 3.2 mg/dL (0.55-1.3); SGOT/AST 36 U/L (15-37); SGPT/ALT 25 U/L (13-61)
[2021-08-26 07:45] LABS: TOT PROT 5.1 g/dl (6.4-8.2)
[2021-08-26 07:46] LABS: BILIRUBIN,TOTAL 0.4 mg/dL (0.2-1)
[2021-08-26 07:47] LABS: ALK PHOS 63 U/L (45-117)
[2021-08-26] MEDS ORDERED: PT OWN MED DRAWER 7, Y5N ONE ×2 (08:19→14:40)
[2021-08-26 08:48] LABS: ALBUMIN 2.2 g/dl (3.4-5.0)
[2021-08-26 09:02] LABS: BLOOD UREA NITROGEN 113.1 mg/dL (7-18)
[2021-08-26] MEDS: FERROUS SO4 325 MG TABLET (FP) PO SCH (09:33)
[2021-08-26] MEDS: amLODIPine BESYLATE 10 MG TABLET (FP) PO SCH (09:33)
[2021-08-26] MEDS: NEBIVOLOL 10 MG TABLET (FP) PO SCH (09:33)
[2021-08-26] MEDS: FLUoxetine HCL 20 MG CAPSULE PO SCH (09:33)
[2021-08-26] MEDS: HEPARIN NA (PORCINE) 5,000 UNITS/ML 1ML VIAL SQ SCH ×2 (09:33→22:09)
[2021-08-26] MEDS: FOLIC ACID 1 MG TABLET (FP) PO SCH (09:33)
[2021-08-26] MEDS: SOLIFENACIN SUCCINATE 5 MG TAB PO SCH (09:34)
[2021-08-26] MEDS: LEFLUNOMIDE 10 MG TABLET PO SCH (09:34)
[2021-08-26] MEDS: SILVER SULFADIAZINE 1% TOP CREAM 50 GM JAR TP SCH (14:00)
[2021-08-26] MEDS ORDERED: LACTATED RINGERS SOLUTION 1,000 ML/1,000 ML INFUS.BAG IV SCH (17:00)
[2021-08-26 19:04] LABS: URINE APPEARANCE CLEAR; URINE BILIRUBIN NEGATIVE (NEGATIVE); URINE COLOR YELLOW; URINE GLUCOSE (UA) NEGATIVE (NEGATIVE); URINE KETONE NEGATIVE (NEGATIVE); URINE LEUK ESTERASE NEGATIVE (NEGATIVE); URINE NITRITE NEGATIVE (NEGATIVE); URINE PROTEIN NEGATIVE (NEGATIVE); URINE UROBILINOGEN 0.2 mg/dL (0.2-1.0)
[2021-08-26] MEDS: hydrALAZINE HCL 10 MG TABLET PO SCH (22:09)
[2021-08-27 08:26] LABS: BASO % 0.7 % (0-2.0); EOS % 1.5 % (0-4.5); HEMATOCRIT 24.2 % (32.4-45.2); HEMOGLOBIN 8.1 GM/dL (10.7-15.3); LYMPH % 10.2 % (8-40); MCH 33.5 pg (25.7-33.7); MCHC 33.5 g/dl (32.0-36.0); MEAN PLT VOLUME 7.6 fl (7.5-11.1); MONO % 7.7 % (3.8-10.2); NEUT % 79.9 % (42.8-82.8); PLATELET COUNT 268 10^3/uL (134-434); RBC 2.42 M/mm3 (3.60-5.2); RDW 15.7 % (11.6-15.6)
[2021-08-27] MEDS: FERROUS SO4 325 MG TABLET (FP) PO SCH (09:01)
[2021-08-27] MEDS: FLUoxetine HCL 20 MG CAPSULE PO SCH (09:01)
[2021-08-27] MEDS: NEBIVOLOL 10 MG TABLET (FP) PO SCH (09:01)
[2021-08-27] MEDS: HEPARIN NA (PORCINE) 5,000 UNITS/ML 1ML VIAL SQ SCH ×2 (09:01→21:17)
[2021-08-27] MEDS: FOLIC ACID 1 MG TABLET (FP) PO SCH (09:01)
[2021-08-27] MEDS: amLODIPine BESYLATE 10 MG TABLET (FP) PO SCH (09:01)
[2021-08-27] MEDS: SOLIFENACIN SUCCINATE 5 MG TAB PO SCH (09:02)
[2021-08-27] MEDS: LEFLUNOMIDE 10 MG TABLET PO SCH (09:03)
[2021-08-27] MEDS: SILVER SULFADIAZINE 1% TOP CREAM 50 GM JAR TP SCH (09:03)
[2021-08-27 09:14] LABS: BLOOD UREA NITROGEN 101.9 mg/dL (7-18)
[2021-08-27 09:16] LABS: CREATININE 2.4 mg/dL (0.55-1.3)
[2021-08-27 09:19] LABS: TOT PROT 4.8 g/dl (6.4-8.2)
[2021-08-27 09:20] LABS: BILIRUBIN,TOTAL 1.4 mg/dL (0.2-1)
[2021-08-27 09:21] LABS: ALBUMIN 2.3 g/dl (3.4-5.0)
[2021-08-27] MEDS: LACTATED RINGERS SOLUTION 1,000 ML/1,000 ML INFUS.BAG IV SCH (13:46)
[2021-08-27] MEDS ORDERED: PT OWN MED DRAWER 7, Y5N ONE (19:09)
[2021-08-27] MEDS: hydrALAZINE HCL 10 MG TABLET PO SCH (21:17)
[2021-08-28 07:49] LABS: BASO % 0.8 % (0-2.0); EOS % 1.5 % (0-4.5); HEMATOCRIT 27.1 % (32.4-45.2); LYMPH % 10.8 % (8-40); MCH 33.7 pg (25.7-33.7); MCHC 33.2 g/dl (32.0-36.0); MEAN CELL VOLUME 101.4 fl (80-96); MEAN PLT VOLUME 7.8 fl (7.5-11.1); MONO % 7.8 % (3.8-10.2); NEUT % 79.1 % (42.8-82.8); PLATELET COUNT 302 10^3/uL (134-434); RBC 2.67 M/mm3 (3.60-5.2); RDW 15.7 % (11.6-15.6); WHITE BLOOD COUNT 9.1 K/mm3 (4.0-10.0)
[2021-08-28 08:08] LABS: ALBUMIN 2.2 g/dl (3.4-5.0); BLOOD UREA NITROGEN 92.3 mg/dL (7-18); CALCIUM 8.2 mg/dL (8.5-10.1)
[2021-08-28 08:12] LABS: CREATININE 2.2 mg/dL (0.55-1.3)
[2021-08-28 08:14] LABS: BILIRUBIN,TOTAL 0.5 mg/dL (0.2-1); TOT PROT 5.2 g/dl (6.4-8.2)
[2021-08-28] MEDS ORDERED: PT OWN MED DRAWER 7, Y5N ONE (09:19)
[2021-08-28] MEDS: LEFLUNOMIDE 10 MG TABLET PO SCH (09:35)
[2021-08-28] MEDS: FERROUS SO4 325 MG TABLET (FP) PO SCH (09:36)
[2021-08-28] MEDS: SOLIFENACIN SUCCINATE 5 MG TAB PO SCH (09:36)
[2021-08-28] MEDS: NEBIVOLOL 10 MG TABLET (FP) PO SCH (09:36)
[2021-08-28] MEDS: ZINC SULFATE 220 MG CAPSULE (FP) PO SCH (09:37)
[2021-08-28] MEDS: HEPARIN NA (PORCINE) 5,000 UNITS/ML 1ML VIAL SQ SCH ×2 (09:37→21:49)
[2021-08-28] MEDS: FOLIC ACID 1 MG TABLET (FP) PO SCH (09:37)
[2021-08-28] MEDS: ASCORBIC ACID 250 MG TABLET (FP) PO SCH (09:37)
[2021-08-28] MEDS: FLUoxetine HCL 20 MG CAPSULE PO SCH (09:37)
[2021-08-28] MEDS: amLODIPine BESYLATE 10 MG TABLET (FP) PO SCH (09:37)
[2021-08-28] MEDS: SILVER SULFADIAZINE 1% TOP CREAM 50 GM JAR TP SCH (09:38)
[2021-08-28] MEDS: ACETAMINOPHEN 325 MG TABLET (FP) PO PRN (21:51)
[2021-08-28] MEDS: hydrALAZINE HCL 10 MG TABLET PO SCH (21:51)
[2021-08-29] MEDS ORDERED: PT OWN MED DRAWER 7, Y5N ONE (09:05)
[2021-08-29] MEDS: ZINC SULFATE 220 MG CAPSULE (FP) PO SCH (09:31)
[2021-08-29] MEDS: amLODIPine BESYLATE 10 MG TABLET (FP) PO SCH (09:31)
[2021-08-29] MEDS: FERROUS SO4 325 MG TABLET (FP) PO SCH (09:31)
[2021-08-29] MEDS: FLUoxetine HCL 20 MG CAPSULE PO SCH (09:31)
[2021-08-29] MEDS: SOLIFENACIN SUCCINATE 5 MG TAB PO SCH (09:31)
[2021-08-29] MEDS: LEFLUNOMIDE 10 MG TABLET PO SCH (09:32)
[2021-08-29] MEDS: NEBIVOLOL 10 MG TABLET (FP) PO SCH (09:32)
[2021-08-29] MEDS: HEPARIN NA (PORCINE) 5,000 UNITS/ML 1ML VIAL SQ SCH ×2 (09:33→22:05)
[2021-08-29] MEDS: SILVER SULFADIAZINE 1% TOP CREAM 50 GM JAR TP SCH (09:33)
[2021-08-29] MEDS: ASCORBIC ACID 250 MG TABLET (FP) PO SCH (09:33)
[2021-08-29] MEDS: FOLIC ACID 1 MG TABLET (FP) PO SCH (09:33)
[2021-08-29] MEDS: LACTATED RINGERS SOLUTION 1,000 ML/1,000 ML INFUS.BAG IV SCH (15:33)
[2021-08-29] MEDS ORDERED: traMADol HCL 50 MG TABLET PO ONE (22:00)
[2021-08-29] MEDS: hydrALAZINE HCL 10 MG TABLET PO SCH (22:07)
[2021-08-30 08:03] LABS: CALCIUM 7.8 mg/dL (8.5-10.1)
[2021-08-30 08:04] LABS: BLOOD UREA NITROGEN 74.5 mg/dL (7-18)
[2021-08-30 08:08] LABS: CREATININE 1.5 mg/dL (0.55-1.3); PHOSPHOROUS 2.2 mg/dL (2.5-4.9)
[2021-08-30 08:10] LABS: BASO % 0.7 % (0-2.0); EOS % 3.9 % (0-4.5); HEMATOCRIT 23.8 % (32.4-45.2); HEMOGLOBIN 7.7 GM/dL (10.7-15.3); LYMPH % 14.8 % (8-40); MCHC 32.5 g/dl (32.0-36.0); MEAN CELL VOLUME 101.4 fl (80-96); MONO % 12.6 % (3.8-10.2); PLATELET COUNT 267 10^3/uL (134-434); RBC 2.34 M/mm3 (3.60-5.2); RDW 15.9 % (11.6-15.6); WHITE BLOOD COUNT 6.5 K/mm3 (4.0-10.0)
[2021-08-30] MEDS: amLODIPine BESYLATE 10 MG TABLET (FP) PO SCH (09:14)
[2021-08-30] MEDS: FLUoxetine HCL 20 MG CAPSULE PO SCH (09:14)
[2021-08-30] MEDS: FERROUS SO4 325 MG TABLET (FP) PO SCH (09:14)
[2021-08-30] MEDS: HEPARIN NA (PORCINE) 5,000 UNITS/ML 1ML VIAL SQ SCH ×2 (09:14→22:13)
[2021-08-30] MEDS: FOLIC ACID 1 MG TABLET (FP) PO SCH (09:15)
[2021-08-30] MEDS: SILVER SULFADIAZINE 1% TOP CREAM 50 GM JAR TP SCH (09:15)
[2021-08-30] MEDS: ASCORBIC ACID 250 MG TABLET (FP) PO SCH (09:15)
[2021-08-30] MEDS: NEBIVOLOL 10 MG TABLET (FP) PO SCH (09:15)
[2021-08-30] MEDS: ZINC SULFATE 220 MG CAPSULE (FP) PO SCH (09:15)
[2021-08-30] MEDS: SOLIFENACIN SUCCINATE 5 MG TAB PO SCH (09:17)
[2021-08-30] MEDS: LEFLUNOMIDE 10 MG TABLET PO SCH (09:18)
[2021-08-30] MEDS: ACETAMINOPHEN 325 MG TABLET (FP) PO PRN (11:17)
[2021-08-30] MEDS: LACTATED RINGERS SOLUTION 1,000 ML/1,000 ML INFUS.BAG IV SCH (12:40)
[2021-08-30 16:20] LABS: HEMATOCRIT 24.4 % (32.4-45.2); HEMOGLOBIN 7.9 GM/dL (10.7-15.3); MCH 33.2 pg (25.7-33.7); MCHC 32.2 g/dl (32.0-36.0); PLATELET COUNT 282 10^3/uL (134-434); RBC 2.37 M/mm3 (3.60-5.2); RDW 16.1 % (11.6-15.6); WHITE BLOOD COUNT 7.9 K/mm3 (4.0-10.0)
[2021-08-30] MEDS ORDERED: PT OWN MED DRAWER 7, Y5N ONE (22:10)
[2021-08-30] MEDS: hydrALAZINE HCL 10 MG TABLET PO SCH (22:13)
[2021-08-31 08:22] LABS: BASO % 0.4 % (0-2.0); EOS % 3.7 % (0-4.5); HEMATOCRIT 24.2 % (32.4-45.2); LYMPH % 12.7 % (8-40); MCH 33.3 pg (25.7-33.7); MEAN CELL VOLUME 100.7 fl (80-96); MEAN PLT VOLUME 7.9 fl (7.5-11.1); MONO % 12.6 % (3.8-10.2); NEUT % 70.6 % (42.8-82.8); PLATELET COUNT 279 10^3/uL (134-434); RDW 15.5 % (11.6-15.6); WHITE BLOOD COUNT 7.7 K/mm3 (4.0-10.0)
[2021-08-31 09:02] LABS: BLOOD UREA NITROGEN 69.2 mg/dL (7-18)
[2021-08-31 09:05] LABS: CREATININE 1.4 mg/dL (0.55-1.3)
[2021-08-31] MEDS ORDERED: PT OWN MED DRAWER 7, Y5N ONE (10:15)
[2021-08-31] MEDS: FOLIC ACID 1 MG TABLET (FP) PO SCH (10:25)
[2021-08-31] MEDS: ZINC SULFATE 220 MG CAPSULE (FP) PO SCH (10:25)
[2021-08-31] MEDS: NEBIVOLOL 10 MG TABLET (FP) PO SCH (10:26)
[2021-08-31] MEDS: FERROUS SO4 325 MG TABLET (FP) PO SCH ×2 (10:26→18:22)
[2021-08-31] MEDS: ASCORBIC ACID 250 MG TABLET (FP) PO SCH (10:26)
[2021-08-31] MEDS: amLODIPine BESYLATE 10 MG TABLET (FP) PO SCH (10:26)
[2021-08-31] MEDS: FLUoxetine HCL 20 MG CAPSULE PO SCH (10:26)
[2021-08-31] MEDS: SOLIFENACIN SUCCINATE 5 MG TAB PO SCH (10:26)
[2021-08-31] MEDS: LEFLUNOMIDE 10 MG TABLET PO SCH (10:27)
[2021-08-31] MEDS: SILVER SULFADIAZINE 1% TOP CREAM 50 GM JAR TP SCH (10:28)
[2021-08-31] MEDS: DOCUSATE SODIUM 100 MG CAPSULE (FP) PO SCH (14:36)
[2021-08-31] MEDS: hydrALAZINE HCL 10 MG TABLET PO SCH (21:55)
[2021-09-01] MEDS ORDERED: PT OWN MED DRAWER 7, Y5N ONE (08:53)
[2021-09-01] MEDS: FERROUS SO4 325 MG TABLET (FP) PO SCH ×2 (08:57→17:07)
[2021-09-01] MEDS: FLUoxetine HCL 20 MG CAPSULE PO SCH (08:59)
[2021-09-01] MEDS: amLODIPine BESYLATE 10 MG TABLET (FP) PO SCH (09:00)
[2021-09-01] MEDS: ASCORBIC ACID 250 MG TABLET (FP) PO SCH (09:00)
[2021-09-01] MEDS: ZINC SULFATE 220 MG CAPSULE (FP) PO SCH (09:00)
[2021-09-01] MEDS: NEBIVOLOL 10 MG TABLET (FP) PO SCH (09:00)
[2021-09-01] MEDS: SOLIFENACIN SUCCINATE 5 MG TAB PO SCH (09:00)
[2021-09-01] MEDS: SILVER SULFADIAZINE 1% TOP CREAM 50 GM JAR TP SCH (09:01)
[2021-09-01] MEDS: DOCUSATE SODIUM 100 MG CAPSULE (FP) PO SCH (09:01)
[2021-09-01] MEDS: LEFLUNOMIDE 10 MG TABLET PO SCH (09:01)
[2021-09-01] MEDS: FOLIC ACID 1 MG TABLET (FP) PO SCH (09:01)
[2021-09-01 10:49] LABS: PHOSPHOROUS 2.2 mg/dL (2.5-4.9)
[2021-09-01 11:29] LABS: BASO % 0.5 % (0-2.0); EOS % 2.4 % (0-4.5); HEMATOCRIT 26.9 % (32.4-45.2); HEMOGLOBIN 8.7 GM/dL (10.7-15.3); LYMPH % 12.9 % (8-40); MCHC 32.2 g/dl (32.0-36.0); MEAN CELL VOLUME 102.5 fl (80-96); MEAN PLT VOLUME 8.1 fl (7.5-11.1); MONO % 8.4 % (3.8-10.2); NEUT % 75.8 % (42.8-82.8); PLATELET COUNT 349 10^3/uL (134-434); RBC 2.62 M/mm3 (3.60-5.2); RDW 15.6 % (11.6-15.6); WHITE BLOOD COUNT 8.1 K/mm3 (4.0-10.0)
[2021-09-01 11:56] LABS: BLOOD UREA NITROGEN 62.5 mg/dL (7-18); CALCIUM 8.4 mg/dL (8.5-10.1); MAGNESIUM 2.1 mg/dL (1.8-2.4)
[2021-09-01 12:00] LABS: CREATININE 1.5 mg/dL (0.55-1.3)
[2021-09-01] MEDS: hydrALAZINE HCL 10 MG TABLET PO SCH (21:18)
[2021-09-02] MEDS: ASCORBIC ACID 250 MG TABLET (FP) PO SCH (10:34)
[2021-09-02] MEDS: SILVER SULFADIAZINE 1% TOP CREAM 50 GM JAR TP SCH (10:34)
[2021-09-02] MEDS: LEFLUNOMIDE 10 MG TABLET PO SCH (10:35)
[2021-09-02] MEDS: AMINO ACIDS/PROTEIN HYDROLYS 30 ML LIQUID.PKT PO SCH ×2 (10:35→16:35)
[2021-09-02] MEDS: amLODIPine BESYLATE 10 MG TABLET (FP) PO SCH (10:37)
[2021-09-02] MEDS: SOLIFENACIN SUCCINATE 5 MG TAB PO SCH (10:37)
[2021-09-02] MEDS: ZINC SULFATE 220 MG CAPSULE (FP) PO SCH (10:38)
[2021-09-02] MEDS: NEBIVOLOL 10 MG TABLET (FP) PO SCH (10:38)
[2021-09-02] MEDS: DOCUSATE SODIUM 100 MG CAPSULE (FP) PO SCH (10:38)
[2021-09-02] MEDS: FOLIC ACID 1 MG TABLET (FP) PO SCH (10:38)
[2021-09-02] MEDS: FERROUS SO4 325 MG TABLET (FP) PO SCH ×2 (10:38→16:35)
[2021-09-02] MEDS: FLUoxetine HCL 10 MG CAPSULE PO SCH (10:39)
[2021-09-02] MEDS ORDERED: PT OWN MED DRAWER 7, Y5N ONE ×2 (11:49→21:06)
[2021-09-02 12:21] LABS: BLOOD UREA NITROGEN 53.6 mg/dL (7-18)
[2021-09-02 12:22] LABS: CALCIUM 8.6 mg/dL (8.5-10.1)
[2021-09-02 12:24] LABS: CREATININE 1.4 mg/dL (0.55-1.3); PHOSPHOROUS 2.2 mg/dL (2.5-4.9)
[2021-09-02 21:05] VITALS: TEMP 98.6
[2021-09-02] MEDS: hydrALAZINE HCL 10 MG TABLET PO SCH (21:07)
[2021-09-03 03:15] VITALS: BP 154/68; PULSE 74
[2021-09-03] MEDS: AMINO ACIDS/PROTEIN HYDROLYS 30 ML LIQUID.PKT PO SCH (08:42)
[2021-09-03] MEDS: FERROUS SO4 325 MG TABLET (FP) PO SCH (08:42)
[2021-09-03] MEDS ORDERED: PT OWN MED DRAWER 7, Y5N ONE ×2 (08:59→13:07)
[2021-09-03] MEDS: amLODIPine BESYLATE 10 MG TABLET (FP) PO SCH (09:18)
[2021-09-03] MEDS: ZINC SULFATE 220 MG CAPSULE (FP) PO SCH (09:18)
[2021-09-03] MEDS: NEBIVOLOL 10 MG TABLET (FP) PO SCH (09:18)
[2021-09-03] MEDS: SOLIFENACIN SUCCINATE 5 MG TAB PO SCH (09:19)
[2021-09-03] MEDS: LEFLUNOMIDE 10 MG TABLET PO SCH (09:20)
[2021-09-03] MEDS: DOCUSATE SODIUM 100 MG CAPSULE (FP) PO SCH (09:20)
[2021-09-03] MEDS: ASCORBIC ACID 250 MG TABLET (FP) PO SCH (09:20)
[2021-09-03] MEDS: FOLIC ACID 1 MG TABLET (FP) PO SCH (09:21)
[2021-09-03] MEDS: SILVER SULFADIAZINE 1% TOP CREAM 50 GM JAR TP SCH (09:21)
[2021-09-03] MEDS: FLUoxetine HCL 10 MG CAPSULE PO SCH (09:21)
== END 2021-09-03 15:11 | DRG 682 ==
LOC: JER 16:56 → JERBED 18:39 → J4W 08-25 21:16 → J6S 08-31 14:39
PROVIDERS: ADMIT Internal Medicine; ATTEND Internal Medicine
DX: N17.9 Acute kidney failure, unspecified (principal); G93.41 Metabolic encephalopathy; S32.2XXA Fracture of coccyx, initial encounter for closed fracture; L03.116 Cellulitis of left lower limb; M62.82 Rhabdomyolysis; E87.2 Acidosis; I24.8 Other forms of acute ischemic heart disease; M06.9 Rheumatoid arthritis, unspecified; R55 Syncope and collapse; Z86.16 Personal history of COVID-19; D64.9 Anemia, unspecified; E87.5 Hyperkalemia; W19.XXXA Unspecified fall, initial encounter; Y93.89 Activity, other specified; Y92.89 Other specified places as the place of occurrence of the external cause; Y99.8 Other external cause status; R62.7 Adult failure to thrive; I12.9 Hypertensive chronic kidney disease with stage 1 through stage 4 chronic kidney disease, or unspecified chronic kidney disease; N18.9 Chronic kidney disease, unspecified; F32.A Depression, unspecified
CPT/HCPCS: 36415; 70450-TC; 71045-TC-FY; 72125-TC; 72170-TC-FY; 72192-TC; 73560-TC-LT-FY; 73560-TC-RT-FY; 73590-TC-LT-FY; 73590-TC-RT-FY; 76775-TC; 80048; 80053; 81003; 82140; 82272; 82550; 82553; 82570; 82607; 82728; 83540; 83605; 83735; 84100; 84156; 84300; 84443; 84484; 85025; 85027; 85610; 85730; 86850; 86900; 86901; 87040; 87086; 93005; 93010; 93970-TC; 97116-GP; 97161-GP; 99285-25; C9803-CS; J1644; U0003; U0005